=== PATIENT | male | born 1935 | race American Indian/Alaskan Native ===

== ENCOUNTER 2017-03-03 15:05 | Emergency (ER) | payer BC, MEDICARE ==
[2017-03-03 15:05] VITALS: BMI 26.2
[2017-03-03 15:20] VITALS: TEMP 97.4
--- NOTE | 2017-03-03 16:05 | C.PDOC ---
History Of Present Illness 81 y/o male presents to ED sent by Dr. Longo for pacemaker check up. Patient states he went to Dr. Longo's office for routine pacemaker check up and doctor had emergency could not seen him and instructed to come to ED. Patient denies palpitations, lightheadedness, chest pain, palpitations, sob or any other complaints at this time. Time Seen by Provider: 03/03/17 15:26 Chief Complaint (Nursing): Medical Clearance History Per: Patient History/Exam Limitations: no limitations Onset/Duration Of Symptoms: Days Current Symptoms Are (Timing): Still Present Past Medical History Reviewed: Historical Data, Nursing Documentation, Vital Signs Vital Signs: Last Vital Signs Temp 97.4 F L 03/03/17 16:39 Pulse 76 03/03/17 16:39 Resp 16 03/03/17 16:39 BP 144/81 03/03/17 16:39 Pulse Ox 97 03/03/17 16:39 - Medical History PMH: No Chronic Diseases Surgical History: No Surg Hx, Pacemaker - [facility] Procedures OTH & OPEN REPAIR INDIRECT INGUINAL HERNIA W GRFT OR PROSTH (01/16/13) Family History: States: No Known Family Hx - Social History Hx Alcohol Use: No Hx Substance Use: No Review Of Systems Constitutional: Negative for: Fever, Chills Cardiovascular: Negative for: Chest Pain, Palpitations, Light Headedness Gastrointestinal: Negative for: Nausea, Vomiting Skin: Negative for: Rash Physical Exam - Physical Exam Appears: Non-toxic, No Acute Distress Skin: Normal Color, Warm, Dry, No Rash Head: Atraumatic, Normacephalic Eye(s): 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 There is no answer at his office. Disposition - Disposition Referrals: Buffy Longo MD [Medical Doctor] - Disposition: HOME/ ROUTINE Disposition Time: 16:04 Condition: STABLE Forms: [facility] (Kazakh), General Discharge Instructions - Clinical Impression Clinical Impression: Medical assessment - Scribe Statement The provider has reviewed the documentation as recorded by the Jessiibjayashree North All medical record entries made by the Jessiibe were at my direction and personally dictated by me. I have reviewed the chart and agree that the record accurately reflects my personal performance of the history, physical exam, medical decision making, and the department course for this patient. I have also personally directed, reviewed, and agree with the discharge instructions and disposition.
[2017-03-03 16:40] VITALS: BP 144/81; PULSE 76; RESP 16
[2017-03-03 16:47] VITALS: O2SAT 98
--- NOTE | 2017-03-04 12:14 | CARD ---
APPROVED REPORT EKG Measurement Heart [id number] <Conclusion> AV dual-paced rhythm with prolonged AV conduction Abnormal ECG
== END 2017-03-03 19:09 | disposition home or self-care (01) ==
LOC: C.ER 15:05
DX: Z00.00 Encounter for general adult medical examination without abnormal findings (principal)

== ENCOUNTER 2017-11-14 21:59 | Inpatient (IN) | payer MEDICARE ==
[2017-11-14 21:59] VITALS: BMI 26.2
[2017-11-14 22:40] LABS: BASO % 0.9 % (0.0-2.0); EOS % 0.6 % (0.0-4.0); HEMOGLOBIN 12.5 g/dL (12.0-18.0); LYMPH # 0.6 K/uL (1.0-4.3); LYMPH % 12.5 % (20.0-40.0); MEAN CELL VOLUME 90.5 fL (80.0-94.0); MEAN CORPUSCULAR HEMOGLOBIN 28.8 pg (27.0-31.0); MEAN CORPUSCULAR HGB CONC 31.8 g/dL (33.0-37.0); MEAN PLATELET VOLUME 9.8 fL (7.2-11.7); MONO # 0.6 K/uL (0.0-0.8); MONO % 12.5 % (0.0-10.0); NEUT # 3.6 K/uL (1.8-7.0); NEUT % 73.5 % (50.0-75.0); NRBC % 0.1 % (0.0-2.0); RBC 4.34 Mil/uL (4.40-5.90); RED CELL DISTRIBUTION WIDTH 17.6 % (11.5-14.5); WHITE BLOOD COUNT 4.9 K/uL (4.8-10.8)
[2017-11-14 23:04] LABS: ALB/GLOB RATIO 1.3 (1.0-2.1); ALBUMIN 3.6 g/dL (3.5-5.0); CALCIUM 9.1 mg/dl (8.6-10.4)
--- NOTE | 2017-11-14 23:05 | C.PDOC ---
History Of Present Illness 82 year old male presents to the ED c/o chest tightness that has been intermittent for the past 4 days. Patient states he occasionally feels chest pain when taking deep breaths. Patient denies fever, chills, nausea, vomit, diarrhea, dysuria, hematuria, weakness, numbness. Chief Complaint (Nursing): Abdominal Pain History Per: Patient History/Exam Limitations: no limitations Onset/Duration Of Symptoms: Days (4), Intermittent Episodes Current Symptoms Are (Timing): Better Quality: "Pain" Recent travel outside of the [place]: No Additional History Per: Patient Past Medical History Reviewed: Historical Data, Nursing Documentation, Vital Signs Vital Signs: Last Vital Signs Temp 97.8 F 11/14/17 22:06 Pulse 96 H 11/14/17 22:06 Resp 18 11/14/17 22:06 BP 149/96 H 11/14/17 22:06 Pulse Ox 98 11/14/17 22:06 - Medical History PMH: No Chronic Diseases Surgical History: Pacemaker - [facility] Procedures OTH & OPEN REPAIR INDIRECT INGUINAL HERNIA W GRFT OR PROSTH (01/16/13) Family History: States: Unknown Family Hx - Social History Hx Alcohol Use: No Hx Substance Use: No - Immunization History Hx Tetanus Toxoid Vaccination: (unknown) Hx Influenza Vaccination: No Hx Pneumococcal Vaccination: (unknown) Review Of Systems Constitutional: Negative for: Fever, Chills Cardiovascular: Positive for: Chest Pain. Negative for: Palpitations Respiratory: Negative for: Cough, Shortness of Breath Gastrointestinal: Negative for: Nausea, Vomiting, Abdominal Pain Neurological: Negative for: Weakness, Numbness, Headache Physical Exam - Physical Exam Appears: Non-toxic, No Acute Distress Skin: Normal Color, Warm, Dry Head: Atraumatic, Normacephalic Eye(s): bilateral: Normal Inspection Neck: Normal ROM, Supple Chest: Symmetrical Cardiovascular: Rhythm Regular Respiratory: Rales (Bilateral at the bases. R > L), No Rhonchi, No Wheezing Gastrointestinal/Abdominal: Soft, No Tenderness, No Guarding, No Rebound Extremity: Normal ROM, No Tenderness, Pedal Edema (2+ bilateral), Capillary Refill (< 2 seconds) Pulses: Left Dorsalis Pedis: Normal, Right Dorsalis Pedis: Normal Neurological/Psych: Oriented x3, Normal Speech, Normal Cognition Gait: Steady ED Course And Treatment - Laboratory Results Result Diagrams: 11/14/17 22:35 11/14/17 22:35 ECG Rhythm: A Paced ECG Interpretation: Abnormal Interpretation Of ECG: atial pacemaker, no acute ST-T changes. Rate From EC O2 Sat by Pulse Oximetry: 98 (ON RA) Pulse Ox Interpretation: Normal - CT Scan/US Ct chest Other Rad Studies (CT/US): Read By Radiologist, Radiology Report Reviewed CT/US Interpretation: CT SCAN OF THE CHEST WITHOUT IV CONTRAST. CLINICAL INDICATION: Chest pain. TECHNIQUE: Axial and reformatted sagittal and coronal images of the chest obtained without IV contrast administration. FINDINGS: Mild right pleural effusion. Moderate left pleural effusion. Passive atelectatic airspace disease of the lower lobes. 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 Right pleural thickening. Multiloculated right pleural effusion and right pleural fissures. Masslike consolidation/subsegmental atelectatic airspace disease of the right lower lobe measuring 4.2x3.7 cm. Mild central pulmonary venous congestion. Normal unenh anced main pulmonary artery and right and left pulmonary arteries. Normal bilateral peripheral pulmonary arteries. Normal thoracic aorta and visualized great vessels. There is no demonstrated aortic aneurysm. Moderately enlarged heart and normal pericardium. AICD is in good position. Normal mediastinum. Normal hilar regions. Normal visualized trachea and bronchi. Normal chest wall structures. Moderate spondylosis. Dilated suprahepatic IVC function of the right cardiac cavities. IMPRESSION: Congestive heart failure. Bilateral pleural effusions. Masslike consolidation in the right lower lobe. This can be secondary to passive atelectasis, subsegmental atelectatic airspace disease, focal pneumonia and/or neoplastic pathology. Clinical evaluation and serial followup exams are suggested to complete resolution. . Electronically signed on Nov 15, 2017 4:14:03 AM EDT by: Sammy Contreras M.D., Certified by PRASANNA, MSK, Neuroradiology Medical Decision Making Medical Decision Making: Plan: * EKG * Labs * CXR * UA on reexamination patient states he no longer has any chest pain, and is asymptomatic now Disposition Discussed With : Joe Hernandez Doctor Will See Patient In The: Hospital Counseled Patient/Family Regarding: Diagnosis - Disposition Disposition: HOSPITALIZED Disposition Time: 05:14 Condition: STABLE Forms: [facility] ([place]riac) - POA Present On Arrival: None - Clinical Impression Clinical Impression: Chest pain, CHF (congestive heart failure), Pleural effusion - Scribe Statement The provider has reviewed the documentation as recorded by the Scribe Young Breen All medical record entries made by the Scribe were at my direction and personally dictated by me. I have reviewed the chart and agree that the record accurately reflects my personal performance of the history, physical exam, medical decision making, and the department course for this patient. I have also personally directed, reviewed, and agree with the discharge instructions and disposition.
[2017-11-14 23:16] LABS: TROPONIN I 0.018 ng/mL (0.00-0.120)
[2017-11-15 00:02] LABS: URINE BILIRUBIN NEGATIVE (NEGATIVE); URINE BLOOD NEGATIVE (NEGATIVE); URINE CLARITY Clear (Clear); URINE COLOR Yellow (YELLOW); URINE GLUCOSE (UA) NORMAL (Normal); URINE LEUKOCYTE ESTERASE NEG Leu/uL (Negative); URINE PROTEIN NEGATIVE (NEGATIVE); URINE UROBILINOGEN NORMAL mg/dL (0.2-1.0)
[2017-11-15] MEDS ORDERED: Azithromycin 500mg/250ML NS 500 MG/250 ML BAG IV STA (04:28)
[2017-11-15] MEDS ORDERED: cefTRIAXone IV 1 gm in Dextros 50 ML IVPB ONE (04:29)
[2017-11-15] MEDS ORDERED: Azithromycin 500mg/250ML NS 500 MG/250 ML BAG IVPB ONE (05:31)
--- NOTE | 2017-11-15 07:57 | CP.PCM.HP ---
<Azra Weathers - Last Filed: 11/15/17 16:55> History of Present Illness - History of Present Illness History of Present Illness: Patient seen and examined in [facility] at approximately 8:25AM. Patient is a FULL CODE status at this time. Patient's emergency contact is Monica Aburto. They can be reached at [phone]. Patient's son lives in [place]. He can be reached at [phone]. CC: "Compression of the chest" HPI: 82 year old male with past medical history significant for HTN, heart murmur, "lung contusion" and chronic back pain presents with complaints of shortness of breath and chest compression which began two days ago. Patient states that his symptoms initially began Wednesday afternoon. He cannot recall any inciting events. Patient states that his symptoms worsened such that he came in for evaluation. Patient states that he typically feels short of breath after walking approx 0.25 miles. He admits to using 2 pillows to sleep at night for the past year. Patient admits to a 30 lb unintentional weight loss within the past year. Patient denies subjective fevers or chills, headaches, nausea, vomiting or paresthesias at this time. PMHx- as stated above PSHx- eye surgery at age 5 and 23, Pacemaker placement, left inguinal hernia repair. Fam Hx- Mother with DM, Dad with hypotension Meds- Aliskiren 300mg/12.5mg daily Social- denies alcohol, tobacco or illicit drug use. Retired. Former rehab teacher/counselor Allergies- PCN causes rash and swelling; Vegetables from the [employer] family PMD- formerly Dr. Montoya. Currently does not have a PMD. Follows with Cardio logist Dr. Longo Present on Admission - Present on Admission Any Indicators Present on Admission: No Review of Systems - EENT Eyes: As Per HPI Nose/Mouth/Throat: As Per HPI - Cardiovascular Cardiovascular: Chest Pain, Dyspnea on Exertion - Respiratory Respiratory: Cough, Dyspnea on Exertion - Gastrointestinal Gastrointestinal: absent: Abdominal Pain, Nausea, Vomiting - Genitourinary Genitourinary: Urinary Incontinence. absent: Dysuria, Flank Pain - Musculoskeletal Musculoskeletal: absent: Myalgias, Neck Pain - Integumentary Integumentary: absent: Bleeding Lesions, Change in Hair, Rash, Skin Pain - Neurological Neurological: absent: Weakness - Psychiatric Psychiatric: absent: Anhedonia, Anxiety - Hematologic/Lymphatic Hematologic: absent: Easy Bleeding, Easy Bruising Past Patient History - Past Social History Smoking Status: Never Smoked Alcohol: None Home Situation {Lives}: With Family - CARDIAC Hx Pacemaker: Yes - PSYCHIATRIC Hx Substance Use: No - SURGICAL HISTORY Other/Comment: pacemaker insertion, Chest surgery from an accident - ANESTHESIA Hx Anesthesia: Yes Hx Anesthesia Reactions: No Meds Allergies/Adverse Reactions: Allergies Allergy/AdvReac Type Severity Reaction Status Date / Time parra Allergy RASH Verified 11/15/17 11:16 Penicillins Allergy RASH Verified 11/15/17 11:16 pepper (genus Capsicum) Allergy RASH Verified 11/15/17 11:16 potato Allergy RASH Verified 11/15/17 11:16 squash Allergy RASH Verified 11/15/17 11:16 tomato Allergy RASH Verified 11/15/17 11:16 Physical Exam - Constitutional Appears: Non-toxic, No Acute Distress - Head Exam Head Exam: ATRAUMATIC, NORMAL INSPECTION - Eye Exam Additional comments: eyelids are closed at this time - ENT Exam ENT Exam: Mucous Membranes Moist - Neck Exam Neck exam: Positive for: Full Rom - Cardiovascular Exam Cardiovascular Exam: REGULAR RHYTHM, +S1, +S2 - GI/Abdominal Exam GI & Abdominal Exam: Normal Bowel Sounds, Soft. absent: Distended, Firm, Tenderness - Extremities Exam Extremities exam: Positive for: full ROM, pedal edema, pedal pulses present. Negative for: calf tenderness - Back Exam Back exam: FULL ROM - Neurological Exam Neurological exam: Alert - Psychiatric Exam Psychiatric exam: Normal Affect, Normal Mood - Skin Skin Exam: Dry, Intact, Normal Color Results - Vital Signs Recent Vital Signs: Last Vital Signs Temp 98.1 F 11/15/17 07:45 Pulse 89 11/15/17 07:45 Resp 20 11/15/17 07:45 BP 118/88 11/15/17 07:45 Pulse Ox 98 11/15/17 07:45 - Labs Result Diagrams: 11/14/17 22:35 11/14/17 22:35 Labs: Laboratory Results - last 24 hr 11/14/17 11/14/17 11/14/17 22:35 22:35 23:10 WBC 4.9 RBC 4.34 L Hgb 12.5 Hct 39.3 MCV 90.5 D MCH 28.8 MCHC 31.8 L RDW 17.6 H Plt Count 150 MPV 9.8 Neut % (Auto) 73.5 Lymph % (Auto) 12.5 L Ocean % (Auto) 12.5 H Eos % (Auto) 0.6 Baso % (Auto) 0.9 Neut # (Auto) 3.6 Lymph # (Auto) 0.6 L [place] # (Auto) 0.6 Eos # (Auto) 0.0 Baso # (Auto) 0.0 D-Dimer, Quantitative 2720 H Sodium 141 Potassium 4.5 Chloride 106 Carbon Dioxide 20 L Anion Gap 19 BUN 23 H Creatinine 1.6 H Est GFR ( Amer) 50 Est GFR (Non-Af Amer) 41 Random Glucose 135 H Calcium 9.1 Total Bilirubin 0.5 AST 73 H ALT 70 Alkaline Phosphatase 138 H Troponin I 0.0180 Total Protein 6.4 Albumin 3.6 Globulin 2.8 Albumin/Globulin Ratio 1.3 Urine Color Urine Clarity Urine pH Ur Specific [place] Urine Protein Urine Glucose (UA) Urine Ketones Urine Blood Urine Nitrate Urine Bilirubin Urine Urobilinogen Ur Leukocyte Esterase Urine RBC (Auto) 11/14/17 23:53 WBC RBC Hgb Hct MCV MCH MCHC RDW Plt Count MPV Neut % (Auto) Lymph % (Auto) Ocean % (Auto) Eos % (Auto) Baso % (Auto) Neut # (Auto) Lymph # (Auto) Ocean # (Auto) Eos # (Auto) Baso # (Auto) D-Dimer, Quantitative Sodium Potassium Chloride Carbon Dioxide Anion Gap BUN Creatinine Est GFR ( Amer) Est GFR (Non-Af Amer) Random Glucose Calcium Total Bilirubin AST ALT Alkaline Phosphatase Troponin I Total Protein Albumin Globulin Albumin/Globulin Ratio Urine Color Yellow Urine Clarity Clear Urine pH 5.0 Ur Specific [place] 1.006 Urine Protein Negative Urine Glucose (UA) Normal Urine Ketones Negative Urine Blood Negative Urine Nitrate Negative Urine Bilirubin Negative Urine Urobilinogen Normal Ur Leukocyte Esterase Neg Urine RBC (Auto) < 1 Assessment & Plan (1) Chest pain Assessment and Plan: ROSLYN 1-2 negtive EKG with signs of PVCs Follow up ROSLYN 3 with EKG Consider Cardiology Consult in light of history of pacemaker. (Patient did not initially disclose this information.) Status: Acute (2) Dyspnea on exertion Assessment and Plan: D-Dimer elevated. F/U Chest CT to rule out PE. BNP elevated F/U Echo CXR and Chest CT confirm bilateral pleural effusions- Noted that there may be some loculation as well Mass noted on CT- Unclear whether it's loculated fluid versus unknown mass. Consult to Cardiothoracic surgery- F/U recommendations In the meantime, follow up CT imaging of abdomen-pelvis and Head CT to rule out any other mass . Pulmonology (Dr. Harley on the case)- F/U recommendations Status: Acute (3) HTN (hypertension) Assessment and Plan: On Aliskerin therapy as home medication. There are contraindications to using this medcication with ACEinhibs/ARBs Patient with lower extremity edema and this will hold off on CCBs at this time. Monitor BP Status: Chronic (4) Prophylactic measure Assessment and Plan: Heparin SC Q12 GI Prophylaxis not currently indicated Status: Acute <Gonzalez Deras H - Last Filed: 11/15/17 18:21> Results - Vital Signs Recent Vital Signs: Last Vital Signs Temp 97.4 F L 11/15/17 16:09 Pulse 89 11/15/17 16:09 Resp 20 11/15/17 16:09 BP 138/100 H 11/15/17 16:09 Pulse Ox 96 11/15/17 16:09 - Labs Result Diagrams: 11/14/17 22:35 11/14/17 22:35 Labs: Laboratory Results - last 24 hr 11/14/17 11/14/17 11/14/17 22:35 22:35 23:10 WBC 4.9 RBC 4.34 L Hgb 12.5 Hct 39.3 MCV 90.5 D MCH 28.8 MCHC 31.8 L RDW 17.6 H Plt Count 150 MPV 9.8 Neut % (Auto) 73.5 Lymph % (Auto) 12.5 L Ocean % (Auto) 12.5 H Eos % (Auto) 0.6 Baso % (Auto) 0.9 Neut # (Auto) 3.6 Lymph # (Auto) 0.6 L [place] # (Auto) 0.6 Eos # (Auto) 0.0 Baso # (Auto) 0.0 D-Dimer, Quantitative 2720 H Sodium 141 Potassium 4.5 Chloride 106 Carbon Dioxide 20 L Anion Gap 19 BUN 23 H Creatinine 1.6 H Est GFR ( Amer) 50 Est GFR (Non-Af Amer) 41 Random Glucose 135 H Calcium 9.1 Total Bilirubin 0.5 AST 73 H ALT 70 Alkaline Phosphatase 138 H Total Creatine Kinase CK-MB (Mass) Troponin I 0.0180 NT-Pro-B Natriuret Pep Total Protein 6.4 Albumin 3.6 Globulin 2.8 Albumin/Globulin Ratio 1.3 Alpha Fetoprotein Carcinoembryonic Ag CA 19-9 Antigen Urine Color Urine Clarity Urine pH Ur Specific [place] Urine Protein Urine Glucose (UA) Urine Ketones Urine Blood Urine Nitrate Urine Bilirubin Urine Urobilinogen Ur Leukocyte Esterase Urine RBC (Auto) 11/14/17 11/15/17 11/15/17 23:53 11:44 11:44 WBC RBC Hgb Hct MCV MCH MCHC RDW Plt Count MPV Neut % (Auto) Lymph % (Auto) Ocean % (Auto) Eos % (Auto) Baso % (Auto) Neut # (Auto) Lymph # (Auto) Ocean # (Auto) Eos # (Auto) Baso # (Auto) D-Dimer, Quantitative Sodium Potassium Chloride Carbon Dioxide Anion Gap BUN Creatinine Est GFR ( Amer) Est GFR (Non-Af Amer) Random Glucose Calcium Total Bilirubin AST ALT Alkaline Phosphatase Total Creatine Kinase 56 CK-MB (Mass) 1.41 Troponin I 0.0240 NT-Pro-B Natriuret Pep 51137 H Total Protein Albumin Globulin Albumin/Globulin Ratio Alpha Fetoprotein Carcinoembryonic Ag 3.6 H CA 19-9 Antigen < 1.4 Urine Color Yellow Urine Clarity Clear Urine pH 5.0 Ur Specific [place] 1.006 Urine Protein Negative Urine Glucose (UA) Normal Urine Ketones Negative Urine Blood Negative Urine Nitrate Negative Urine Bilirubin Negative Urine Urobilinogen Normal Ur Leukocyte Esterase Neg Urine RBC (Auto) < 1 11/15/17 11/15/17 11:44 17:24 WBC RBC Hgb Hct MCV MCH MCHC RDW Plt Count MPV Neut % (Auto) Lymph % (Auto) Ocean % (Auto) Eos % (Auto) Baso % (Auto) Neut # (Auto) Lymph # (Auto) Ocean # (Auto) Eos # (Auto) Baso # (Auto) D-Dimer, Quantitative Sodium Potassium Chloride Carbon Dioxide Anion Gap BUN Creatinine Est GFR ( Amer) Est GFR (Non-Af Amer) Random Glucose Calcium Total Bilirubin AST ALT Alkaline Phosphatase Total Creatine Kinase 48 L CK-MB (Mass) 1.09 Troponin I 0.0240 NT-Pro-B Natriuret Pep Total Protein Albumin Globulin Albumin/Globulin Ratio Alpha Fetoprotein 3.9 Carcinoembryonic Ag CA 19-9 Antigen Urine Color Urine Clarity Urine pH Ur Specific [place] Urine Protein Urine Glucose (UA) Urine Ketones Urine Blood Urine Nitrate Urine Bilirubin Urine Urobilinogen Ur Leukocyte Esterase Urine RBC (Auto) Attending/Attestation - Attestation I have personally seen and examined this patient.: Yes I have fully participated in the care of the patient.: Yes I have reviewed all pertinent clinical information: Yes Notes (Text): 11/15/17 18:21 Medical attending: Patient was seen and examined by me, reviewed the above note by the medical doctor md/medical director the above. I saw the patient together with the medical doctor md/medical director. As noted above the patient has had a CAT scan which shows very concerning bilateral pleural effusions as well as what appears to be a area of loculated possible fluid or a mass. He tells us that he's had at least a 30 pound weight loss in the recent past I did explain to the patient her suspicion for malignancy was unfortunately higher from what he tells us. The meantime were to check additional CT imaging of the abdomen and pelvis as well as the CT scan of the head to assess for any other potential areas of what could be a malignancy. The patient will need a pulmonology evaluation as well as a surgery evaluation for the time being. We'll check additional cardiac enzymes, repeat EKGs and also BNP and 2-D echo. We may need a cardiology evaluation as well Thank you very much, Gonzalez Deras
--- NOTE | 2017-11-15 09:30 | RAD ---
Date of service: 11/14/2017 PROCEDURE: CHEST RADIOGRAPH, 1 VIEW HISTORY: chest pain COMPARISON: 01/09/2013. FINDINGS: LUNGS: The lungs are well inflated. There are lobular opacities in the right lower lobe. PLEURA: No pneumothorax. Bilateral pleural effusions. CARDIOVASCULAR: Mild cardiomegaly. There is a left-sided dual lead transvenous permanent pacing device. OSSEOUS STRUCTURES: No significant abnormalities. VISUALIZED UPPER ABDOMEN: Normal. OTHER FINDINGS: None. IMPRESSION: Lobular opacities in the right lower lobe which may represent metastatic nodules, mass or loculated fluid. Correlation with CT scan is advised.
[2017-11-15] MEDS ORDERED: Iohexol 240 (50 ml) PO ONE (11:45)
--- NOTE | 2017-11-15 12:10 | CP.PCM.CON ---
History of Present Illness - History of Present Illness History of Present Illness: Cardiothoracic surgery consult for Dr. Melissa. Consulted for: right lower lung mass vs fluid collection Patient is an 82M with PMHx of heart murmur, HTN, and pacemaker placement with PSH including VATS of the right chest for prior lung contusion and collapsed lung 15 years ago. He presented with SOB and chest pressure. Pt reports the chest pressure and SOB started 3 weeks ago. 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 He also complains of pain over his chest over to the L side and R shoulder soreness. Patient reports dry cough (past 2 days), unintentional weight loss of 40 pounds in past year. Pt denies fevers/chills and nausea/vomiting. Patient was admitted at this facility 9 months ago for weakness and had a chest Xray that did not show any fluid collection at that time. PMHx: spinal stenosis, disc displacement, R leg compound fracture, R lung contusion and collapse s/p fall, heart murmur, hypertension SxHx: pacemaker placement (July 2017), eye operations (age 5, 23), prostate operation, L inguinal hernia repair FamHx: brother at 52 from lung cancer, mother had DM, father had hypotension, SocHx Denies smoking, alcohol, and drug use. Retired rehab teacher/counselor. Allergies: penicillin (rash) Meds: Furosemide, Heparin, Azithromycin, and Ceftriaxone. Review of Systems - Review of Systems All systems: reviewed and no additional remarkable complaints except (as per HPI) Past Patient History - Past Medical History & Family History Past Medical History?: Yes Pertinent Family History: brothers of lung cancer--all cigarette smokers - Past Social History Smoking Status: Never Smoked Alcohol: None Drugs: Denies - CARDIAC Hx Pacemaker: Yes - HEENT Hx Blind: Yes - MUSCULOSKELETAL/RHEUMATOLOGICAL Hx Falls: No - GENITOURINARY/GYNECOLOGICAL Hx Incontinence: Yes - PSYCHIATRIC Hx Substance Use: No - SURGICAL HISTORY Other/Comment: pacemaker insertion, VATS right chest for collapsed lung s/p fall - ANESTHESIA Hx Anesthesia: Yes Hx Anesthesia Reactions: No Meds Allergies/Adverse Reactions: Allergies Allergy/AdvReac Type Severity Reaction Status Date / Time parra Allergy RASH Verified 11/15/17 11:16 Penicillins Allergy RASH Verified 11/15/17 11:16 pepper (genus Capsicum) Allergy RASH Verified 11/15/17 11:16 potato Allergy RASH Verified 11/15/17 11:16 squash Allergy RASH Verified 11/15/17 11:16 tomato Allergy RASH Verified 11/15/17 11:16 - Medications Medications: Current Medications Furosemide (Lasix) 20 mg IVP DAILY [facility] Last Admin: 11/15/17 09:46 Dose: 20 mg Heparin Sodium (Porcine) (Heparin) 5,000 units SC Q12 [facility] Last Admin: 11/15/17 09:46 Dose: 5,000 units Influenza Virus Vaccine (Fluzone Quad [id number]) 60 mcg IM .ONCE ONE Stop: 11/16/17 14:01 Pneumococcal Polyvalent Vaccine (Pneumovax 23 Vaccine) 0.5 ml IM .ONCE ONE Stop: 11/16/17 10:01 Physical Exam - Constitutional Appears: Non-toxic, No Acute Distress - Head Exam Head Exam: ATRAUMATIC, NORMOCEPHALIC - Eye Exam Eye Exam: EOMI Additional comments: milky white pupils - ENT Exam ENT Exam: Mucous Membranes Moist, Normal Oropharynx - Respiratory Exam Respiratory Exam: Rales (BL lower lungs R>L), NORMAL BREATHING PATTERN. absent: Accessory Muscle Use, Respiratory Distress - Cardiovascular Exam Cardiovascular Exam: RRR - GI/Abdominal Exam GI & Abdominal Exam: Soft. absent: Distended, Tenderness - Extremities Exam Extremities exam: Positive for: pedal pulses present. Negative for: calf tenderness, pedal edema - Neurological Exam Neurological exam: Alert, Oriented x3 - Psychiatric Exam Psychiatric exam: Normal Affect, Normal Mood - Skin Skin Exam: Dry, Intact, Normal Color, Warm Results - Vital Signs Recent Vital Signs: Last Vital Signs Temp 98.1 F 11/15/17 07:45 Pulse 91 H 11/15/17 07:57 Resp 20 11/15/17 07:45 BP 142/98 H 11/15/17 09:46 Pulse Ox 98 11/15/17 07:45 - Labs Result Diagrams: 11/14/17 22:35 11/14/17 22:35 Labs: Laboratory Results - last 24 hr 11/14/17 11/14/17 11/14/17 22:35 22:35 23:10 WBC 4.9 RBC 4.34 L Hgb 12.5 Hct 39.3 MCV 90.5 D MCH 28.8 MCHC 31.8 L RDW 17.6 H Plt Count 150 MPV 9.8 Neut % (Auto) 73.5 Lymph % (Auto) 12.5 L [place] % (Auto) 12.5 H Eos % (Auto) 0.6 Baso % (Auto) 0.9 Neut # (Auto) 3.6 Lymph # (Auto) 0.6 L [place] # (Auto) 0.6 Eos # (Auto) 0.0 Baso # (Auto) 0.0 D-Dimer, Quantitative 2720 H Sodium 141 Potassium 4.5 Chloride 106 Carbon Dioxide 20 L Anion Gap 19 BUN 23 H Creatinine 1.6 H Est GFR ( Amer) 50 Est GFR (Non-Af Amer) 41 Random Glucose 135 H Calcium 9.1 Total Bilirubin 0.5 AST 73 H ALT 70 Alkaline Phosphatase 138 H Troponin I 0.0180 Total Protein 6.4 Albumin 3.6 Globulin 2.8 Albumin/Globulin Ratio 1.3 Urine Color Urine Clarity Urine pH Ur Specific [place] Urine Protein Urine Glucose (UA) Urine Ketones Urine Blood Urine Nitrate Urine Bilirubin Urine Urobilinogen Ur Leukocyte Esterase Urine RBC (Auto) 11/14/17 23:53 WBC RBC Hgb Hct MCV MCH MCHC RDW Plt Count MPV Neut % (Auto) Lymph % (Auto) [place] % (Auto) Eos % (Auto) Baso % (Auto) Neut # (Auto) Lymph # (Auto) [place] # (Auto) Eos # (Auto) Baso # (Auto) D-Dimer, Quantitative Sodium Potassium Chloride Carbon Dioxide Anion Gap BUN Creatinine Est GFR ( Amer) Est GFR (Non-Af Amer) Random Glucose Calcium Total Bilirubin AST ALT Alkaline Phosphatase Troponin I Total Protein Albumin Globulin Albumin/Globulin Ratio Urine Color Yellow Urine Clarity Clear Urine pH 5.0 Ur Specific [place] 1.006 Urine Protein Negative Urine Glucose (UA) Normal Urine Ketones Negative Urine Blood Negative Urine Nitrate Negative Urine Bilirubin Negative Urine Urobilinogen Normal Ur Leukocyte Esterase Neg Urine RBC (Auto) < 1 - Imaging and Cardiology CT scan - chest Status: Image reviewed by me, Report reviewed by me Assessment & Plan - Assessment and Plan (Free Text) Assessment: 82M with PMH of right sided VATS for collapsed lung with current BL pleural effusions, and consolidation in the right lung concerning for mass vs subsegmental atelectasis Plan: Recommend cardiac and pulmonary consults for evaluation and optimization Recommend IR for possible fluid drainage or biopsy of concerning area management per primary Further cardiothoracic surgical recommendations pending further workup of the CT findings Discussed with Dr. Melissa, further recommendations per him Annita Penny, PGY2
[2017-11-15 12:12] LABS: CK-MB 1.41 ng/mL (0.0-3.38)
[2017-11-15 12:13] LABS: B-TYPE NATRIURETIC PEPTIDE 21300 pg/mL (0-900)
[2017-11-15 12:17] LABS: TROPONIN I 0.024 ng/mL (0.00-0.120)
--- NOTE | 2017-11-15 14:46 | CT ---
Date of service: 11/15/2017 PROCEDURE: CT HEAD WITHOUT CONTRAST. HISTORY: rule out mass COMPARISON: None available. TECHNIQUE: Axial computed tomography images were obtained through the head/brain without intravenous contrast. Radiation dose: Total exam DLP = 1087.42 mGy-cm. This CT exam was performed using one or more of the following dose reduction techniques: Automated exposure control, adjustment of the mA and/or kV according to patient size, and/or use of iterative reconstruction technique. FINDINGS: HEMORRHAGE: No intracranial hemorrhage. 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 There are moderate chronic microangiopathic changes. There is no mass, mass effect or abnormal extra-axial fluid collection. VENTRICLES: There is mild age-related global parenchymal volume loss and proportionate enlargement of the ventricles and cortical sulci. CALVARIUM: The skull base and calvarium are normal. PARANASAL SINUSES: Unremarkable as visualized. No significant inflammatory changes. MASTOID AIR CELLS: Unremarkable as visualized. No inflammatory changes. OTHER FINDINGS: Bilateral phthisis bulbi. IMPRESSION: No acute intracranial abnormality. Moderate chronic microangiopathic changes and mild age-related global parenchymal volume loss. Old lacunar infarctions as described above.
--- NOTE | 2017-11-15 15:12 | CP.PCM.CON ---
History of Present Illness - History of Present Illness History of Present Illness: reason for consultation: shortness of breath 82-year-old male with past medical history of hypertension, status post permanent pacemaker, glaucoma, history of collapsed lung who presented to emergency room complaining of shortness of breath and chest pressure. denies fever chills. Complaining of weight loss and cough PMHx: spinal stenosis, disc displacement, R leg compound fracture, R lung contusion and collapse s/p fall, heart murmur, hypertension, glaucoma, cataracts SurgHx: pacemaker placement in July 2017, eye operations at age 5 and 23, prostate operation, L inguinal repair Fam Hx: brother of lung cancer at age 52, mother DM, father hypotension Social Hx: denies smoking, alcohol and illicit drug use Allergies: Penicillin, patient gets a rash Meds: Furosemide, Heparin, Azithromycin, Ceftriaxone . Review of Systems - Review of Systems All systems: reviewed and no additional remarkable complaints except (shortness of breath) Past Patient History - Past Medical History & Family History Past Medical History?: Yes - Past Social History Smoking Status: Never Smoked Alcohol: None Home Situation {Lives}: With Family - CARDIAC Hx Pacemaker: Yes - HEENT Hx Blind: Yes - MUSCULOSKELETAL/RHEUMATOLOGICAL Hx Falls: No - GENITOURINARY/GYNECOLOGICAL Hx Incontinence: Yes - PSYCHIATRIC Hx Substance Use: No - SURGICAL HISTORY Other/Comment: pacemaker insertion, Chest surgery from an accident - ANESTHESIA Hx Anesthesia: Yes Hx Anesthesia Reactions: No Meds Allergies/Adverse Reactions: Allergies Allergy/AdvReac Type Severity Reaction Status Date / Time parra Allergy RASH Verified 11/15/17 11:16 Penicillins Allergy RASH Verified 11/15/17 11:16 pepper (genus Capsicum) Allergy RASH Verified 11/15/17 11:16 potato Allergy RASH Verified 11/15/17 11:16 squash Allergy RASH Verified 11/15/17 11:16 tomato Allergy RASH Verified 11/15/17 11:16 - Medications Medications: Current Medications Furosemide (Lasix) 20 mg IVP DAILY [facility] Last Admin: 11/15/17 09:46 Dose: 20 mg Heparin Sodium (Porcine) (Heparin) 5,000 units SC Q12 [facility] Last Admin: 11/15/17 09:46 Dose: 5,000 units Influenza Virus Vaccine (Fluzone Quad [id number]) 60 mcg IM .ONCE ONE Stop: 10/02/18 14:01 Pneumococcal Polyvalent Vaccine (Pneumovax 23 Vaccine) 0.5 ml IM .ONCE ONE Stop: 11/16/17 10:01 Physical Exam - Head Exam Head Exam: ATRAUMATIC, NORMOCEPHALIC - Eye Exam Eye Exam: Normal appearance - ENT Exam ENT Exam: Mucous Membranes Moist - Neck Exam Neck exam: Positive for: Normal Inspection - Respiratory Exam Respiratory Exam: Decreased Breath Sounds - Cardiovascular Exam Cardiovascular Exam: REGULAR RHYTHM Results - Vital Signs Recent Vital Signs: Last Vital Signs Temp 98.1 F 11/15/17 07:45 Pulse 94 H 11/15/17 12:00 Resp 20 11/15/17 07:45 BP 142/98 H 11/15/17 09:46 Pulse Ox 98 11/15/17 07:45 - Labs Result Diagrams: 11/14/17 22:35 11/14/17 22:35 Labs: Laboratory Results - last 24 hr 11/14/17 11/14/17 11/14/17 22:35 22:35 23:10 WBC 4.9 RBC 4.34 L Hgb 12.5 Hct 39.3 MCV 90.5 D MCH 28.8 MCHC 31.8 L RDW 17.6 H Plt Count 150 MPV 9.8 Neut % (Auto) 73.5 Lymph % (Auto) 12.5 L [place] % (Auto) 12.5 H Eos % (Auto) 0.6 Baso % (Auto) 0.9 Neut # (Auto) 3.6 Lymph # (Auto) 0.6 L [place] # (Auto) 0.6 Eos # (Auto) 0.0 Baso # (Auto) 0.0 D-Dimer, Quantitative 2720 H Sodium 141 Potassium 4.5 Chloride 106 Carbon Dioxide 20 L Anion Gap 19 BUN 23 H Creatinine 1.6 H Est GFR ( Amer) 50 Est GFR (Non-Af Amer) 41 Random Glucose 135 H Calcium 9.1 Total Bilirubin 0.5 AST 73 H ALT 70 Alkaline Phosphatase 138 H Total Creatine Kinase CK-MB (Mass) Troponin I 0.0180 NT-Pro-B Natriuret Pep Total Protein 6.4 Albumin 3.6 Globulin 2.8 Albumin/Globulin Ratio 1.3 Alpha Fetoprotein Carcinoembryonic Ag CA 19-9 Antigen Urine Color Urine Clarity Urine pH Ur Specific [place] Urine Protein Urine Glucose (UA) Urine Ketones Urine Blood Urine Nitrate Urine Bilirubin Urine Urobilinogen Ur Leukocyte Esterase Urine RBC (Auto) 11/14/17 11/15/17 11/15/17 23:53 11:44 11:44 WBC RBC Hgb Hct MCV MCH MCHC RDW Plt Count MPV Neut % (Auto) Lymph % (Auto) [place] % (Auto) Eos % (Auto) Baso % (Auto) Neut # (Auto) Lymph # (Auto) [place] # (Auto) Eos # (Auto) Baso # (Auto) D-Dimer, Quantitative Sodium Potassium Chloride Carbon Dioxide Anion Gap BUN Creatinine Est GFR ( Amer) Est GFR (Non-Af Amer) Random Glucose Calcium Total Bilirubin AST ALT Alkaline Phosphatase Total Creatine Kinase 56 CK-MB (Mass) 1.41 Troponin I 0.0240 NT-Pro-B Natriuret Pep 11827 H Total Protein Albumin Globulin Albumin/Globulin Ratio Alpha Fetoprotein Carcinoembryonic Ag 3.6 H CA 19-9 Antigen < 1.4 Urine Color Yellow Urine Clarity Clear Urine pH 5.0 Ur Specific [place] 1.006 Urine Protein Negative Urine Glucose (UA) Normal Urine Ketones Negative Urine Blood Negative Urine Nitrate Negative Urine Bilirubin Negative Urine Urobilinogen Normal Ur Leukocyte Esterase Neg Urine RBC (Auto) < 1 11/15/17 11:44 WBC RBC Hgb Hct MCV MCH MCHC RDW Plt Count MPV Neut % (Auto) Lymph % (Auto) [place] % (Auto) Eos % (Auto) Baso % (Auto) Neut # (Auto) Lymph # (Auto) [place] # (Auto) Eos # (Auto) Baso # (Auto) D-Dimer, Quantitative Sodium Potassium Chloride Carbon Dioxide Anion Gap BUN Creatinine Est GFR ( Amer) Est GFR (Non-Af Amer) Random Glucose Calcium Total Bilirubin AST ALT Alkaline Phosphatase Total Creatine Kinase CK-MB (Mass) Troponin I NT-Pro-B Natriuret Pep Total Protein Albumin Globulin Albumin/Globulin Ratio Alpha Fetoprotein 3.9 Carcinoembryonic Ag CA 19-9 Antigen Urine Color Urine Clarity Urine pH Ur Specific [place] Urine Protein Urine Glucose (UA) Urine Ketones Urine Blood Urine Nitrate Urine Bilirubin Urine Urobilinogen Ur Leukocyte Esterase Urine RBC (Auto) Assessment & Plan (1) Dyspnea on exertion Status: Acute Comment: CAT scan of the chest reviewed. Loculated effusion/mass lesion. IR consult. Official CAT scan report (2) Pleural effusion Status: Acute
--- NOTE | 2017-11-15 15:55 | CT ---
Date of service: 11/15/2017 PROCEDURE: CT Chest without contrast HISTORY: chest pain/ left lung field density COMPARISON: None available. TECHNIQUE: Contiguous axial images were obtained through the chest without intravenous contrast enhancement. Sagittal and coronal reconstructions were performed. Radiation dose (DLP): 260.06 mGy-cm. This CT exam was performed using one or more of the following dose reduction techniques: Automated exposure control, adjustment of the mA and/or kV according to patient size, and/or use of iterative reconstruction technique. FINDINGS: LUNGS: There is a large left-sided effusion that may in part be loculated which is associated with some atelectasis in the left lung base. Suspect free-flowing pleural fluid extending superiorly into the left upper lung field and lung apex. Additionally, similar suspected smaller loculated pleural collections felt to be present in the right lung base as well extending superiorly into the right upper lobe and lung apex as well.. There also appears to be mild ground-glass opacities suggesting mild pulmonary venous congestion. MEDIASTINUM: Heart is enlarged. No significant pericardial effusion. In situ bipolar pacemaker/defibrillator. Ascending thoracic aorta is dilated measuring approximately 4.0 cm and descending thoracic aorta measures approximately 2.7 cm. Pulmonary trunk measures approximately 3.7 cm. Central airways midline and patent. No large central endoluminal lesions. Few small nonspecific mediastinal lymph nodes are present. Evaluation for hilar adenopathy is limited due to the lack of circulating intravenous contrast material. PLEURA: No evidence of pneumothorax BONES: Minor multilevel degenerative spondylosis of the thoracic spine. No acute compression fractures no retropulsed fragments UPPER ABDOMEN: Grossly unremarkable. OTHER FINDINGS: None. IMPRESSION: There is a relatively large left-sided effusion part of which is felt to be loculated. Suspect small loculated pleural collections right lung base extending superiorly into the right upper lobe and lung apex.. Mild bibasilar atelectasis felt be present. Cardiomegaly with mildly the the dilated ascending thoracic aorta.
--- NOTE | 2017-11-15 16:22 | CT ---
Date of service: 2017-11-15 13:57:12 PROCEDURE: CT Chest, Abdomen and Pelvis with intravenous contrast HISTORY: rule out PE, prior study was not under PE protocol COMPARISON: None available. TECHNIQUE: IV dose administered: 100 cc of Omni 350 Radiation dose: Total exam DLP = 726 mGy-cm. This CT exam was performed using one or more of the following dose reduction techniques: Automated exposure control, adjustment of the mA and/or kV according to patient size, and/or use of iterative reconstruction technique. FINDINGS: CT CHEST WITH CONTRAST: LUNGS: See below MEDIASTINUM: The study was not ordered as a pulmonary embolus study. However there is adequate opacification of the proximal vessels to exclude emboli. Small emboli in the distal branches cannot be excluded. The aorta is mildly dilated and tortuous with no evidence of dissection. LYMPH NODES: Unremarkable. PLEURA: Bilateral pleural effusions are seen with multiple round loculations. These all measure fluid density. BONES: Unremarkable. OTHER FINDINGS: None. CT ABDOMEN AND PELVIS: LIVER: Unremarkable. No gross lesion or ductal dilatation. GALLBLADDER AND BILE DUCTS: Unremarkable. PANCREAS: Mildly dilated pancreatic duct SPLEEN: Unremarkable. ADRENALS: Unremarkable. No mass. KIDNEYS AND URETERS: Unremarkable. No hydronephrosis. No solid mass. VASCULATURE: Unremarkable. No aortic aneurysm. BOWEL: Unremarkable. No obstruction. No gross mural thickening. There is increased density in the fat planes surrounding the rectum. This could be a chronic finding. Clinical correlation is suggested. APPENDIX: Normal appendix. PERITONEUM: Unremarkable. No free fluid. No free air. There is subcutaneous edema consistent with anasarca LYMPH NODES: Unremarkable. No enlarged lymph nodes. BLADDER: Unremarkable. REPRODUCTIVE: Unremarkable. BONES: No acute fracture. OTHER FINDINGS: There are some surgical clips in the left inguinal region. IMPRESSION: No evidence of central pulmonary emboli. Bilateral pleural effusions with multiple loculations.
[2017-11-15 18:12] LABS: CK-MB 1.09 ng/mL (0.0-3.38); TROPONIN I 0.024 ng/mL (0.00-0.120)
[2017-11-16 08:01] LABS: BASO % 0.3 % (0.0-2.0); EOS % 0.5 % (0.0-4.0); HEMOGLOBIN 12.1 g/dL (12.0-18.0); LYMPH # 1.3 K/uL (1.0-4.3); MEAN CELL VOLUME 88.6 fL (80.0-94.0); MEAN CORPUSCULAR HEMOGLOBIN 29.5 pg (27.0-31.0); MEAN CORPUSCULAR HGB CONC 33.3 g/dL (33.0-37.0); MEAN PLATELET VOLUME 10.2 fL (7.2-11.7); MONO # 0.7 K/uL (0.0-0.8); MONO % 10.9 % (0.0-10.0); NEUT # 4.3 K/uL (1.8-7.0); NEUT % 68.3 % (50.0-75.0); NRBC % 0.1 % (0.0-2.0); RBC 4.1 Mil/uL (4.40-5.90); RED CELL DISTRIBUTION WIDTH 16.6 % (11.5-14.5); WHITE BLOOD COUNT 6.3 K/uL (4.8-10.8)
[2017-11-16 08:04] LABS: INR 1.6
[2017-11-16 08:43] LABS: ALB/GLOB RATIO 1.2 (1.0-2.1); ALBUMIN 3.3 g/dL (3.5-5.0); CALCIUM 9.2 mg/dl (8.6-10.4)
--- NOTE | 2017-11-16 08:51 | CP.PCM.PN ---
Subjective - Date & Time of Evaluation Date of Evaluation: 11/16/17 Time of Evaluation: 07:20 - Subjective Subjective: Cardiothoracic progress note for Dr. Melissa Patient seen and examined at bedside. No adverse events overnight. Patient says his chest pressure is still present but better, has sharp pain in his right chest with coughing, but denies any fevers or chills. Objective - Vital Signs/Intake and Output Vital Signs (last 24 hours): Temp Pulse Resp BP Pulse Ox 97.4 F L 77 20 135/95 H 98 11/16/17 07:15 11/16/17 07:15 11/16/17 07:15 11/16/17 07:15 11/16/17 07:15 - Medications Medications: Current Medications Furosemide (Lasix) 20 mg IVP DAILY [facility] Last Admin: 11/15/17 09:46 Dose: 20 mg Heparin Sodium (Porcine) (Heparin) 5,000 units SC Q12 [facility] Last Admin: 11/15/17 21:34 Dose: 5,000 units Influenza Virus Vaccine (Fluzone Quad [id number]) 60 mcg IM .ONCE ONE Stop: 11/16/17 14:01 Pneumococcal Polyvalent Vaccine (Pneumovax 23 Vaccine) 0.5 ml IM .ONCE ONE Stop: 11/16/17 10:01 - Labs Labs: 11/16/17 07:45 11/16/17 07:45 PT 18.0 SECONDS (9.7-12.2) H 11/16/17 07:45 INR 1.6 11/16/17 07:45 APTT 35 SECONDS (21-34) H 11/16/17 07:45 - Constitutional Appears: Well, Non-toxic, No Acute Distress - Head Exam Head Exam: ATRAUMATIC, NORMOCEPHALIC - Eye Exam Eye Exam: EOMI. absent: Conjunctival injection, Scleral icterus - ENT Exam ENT Exam: Mucous Membranes Moist, Normal Oropharynx - Respiratory Exam Respiratory Exam: NORMAL BREATHING PATTERN. absent: Accessory Muscle Use, Respiratory Distress - Cardiovascular Exam Cardiovascular Exam: RRR - GI/Abdominal Exam GI & Abdominal Exam: Soft. absent: Distended - Neurological Exam Neurological Exam: Alert, Awake, Oriented x3 - Psychiatric Exam Psychiatric exam: Normal Affect, Normal Mood - Skin Skin Exam: Dry, Normal Color, Warm Assessment and Plan - Assessment and Plan (Free Text) Assessment: 82M with BL pleural effusions L>R, and area of subsegmental atelectasis vs mass in the right lung fissure Plan: Discussed case with IR--percutaneous biopsy unobtainable d/t location of area of concern. Recommend PET CT to discern mass vs fluid collection F/U cardio and pulmonary recs Medical management per primary Will continue to follow--no plans for surgical intervention at this time as diagnosis is not certain at this time Discussed with Dr. Melissa, who agrees with above Annita Penny, PGY2
[2017-11-16] MEDS ORDERED: Pneumococcal 23-Valent Vaccine IM ONE (10:00)
[2017-11-16] MEDS ORDERED: Phytonadione 10 mg/ml Inj (Adult) SC STA (11:03)
[2017-11-16] MEDS ORDERED: Influenza Vaccine 60 MCG/0.5 ML SYR (3 yr & up) IM ONE (14:00)
[2017-11-16 15:52] VITALS: RESP 20
--- NOTE | 2017-11-16 16:04 | CP.PCM.PN ---
<Lexy Hood - Last Filed: 11/16/17 21:27> Subjective - Date & Time of Evaluation Date of Evaluation: 11/16/17 Time of Evaluation: 09:20 - Subjective Subjective: Pt seen and examined in room, sitting comfortably in chair eating breakfast. No overnight events. Pt reports that chest pressure, and SOB has improved from admission. Pt denies fevers, chest pain, cough, abd pain, n/v/d. Pt expresses that he is eager to return home. Objective - Vital Signs/Intake and Output Vital Signs (last 24 hours): Temp Pulse Resp BP Pulse Ox 97.3 F L 92 H 20 132/102 H 95 11/16/17 15:50 11/16/17 15:50 11/16/17 15:50 11/16/17 15:50 11/16/17 15:50 Intake and Output: 11/16/17 11/16/17 06:59 18:59 Intake Total 650 Output Total 350 Balance 300 - Medications Medications: Current Medications Furosemide (Lasix) 20 mg IVP DAILY [facility] Last Admin: 11/16/17 10:36 Dose: Not Given Heparin Sodium (Porcine) (Heparin) 5,000 units SC Q12 [facility] Last Admin: 11/16/17 10:34 Dose: 5,000 units - Labs Labs: 11/16/17 07:45 11/16/17 07:45 PT 18.0 SECONDS (9.7-12.2) H 11/16/17 07:45 INR 1.6 11/16/17 07:45 APTT 35 SECONDS (21-34) H 11/16/17 07:45 - Constitutional Appears: Non-toxic - Head Exam Head Exam: ATRAUMATIC, NORMAL INSPECTION, NORMOCEPHALIC - Eye Exam Eye Exam: absent: Normal appearance (cloudy sclerae, eyes moist and tearing ) - ENT Exam ENT Exam: Mucous Membranes Moist - Neck Exam Neck Exam: Normal Inspection - Respiratory Exam Respiratory Exam: Decreased Breath Sounds, Rhonchi, NORMAL BREATHING PATTERN - Cardiovascular Exam Cardiovascular Exam: REGULAR RHYTHM, +S1, +S2 - GI/Abdominal Exam GI & Abdominal Exam: Soft, Normal Bowel Sounds. absent: Distended, Tenderness - Extremities Exam Extremities Exam: Normal Inspection. absent: Calf Tenderness, Pedal Edema - Neurological Exam Neurological Exam: Alert, Awake, Oriented x3 - Psychiatric Exam Psychiatric exam: Normal Affect, Normal Mood - Skin Skin Exam: Dry, Intact, Normal Color, Warm Assessment and Plan - Assessment and Plan (Free Text) Assessment: 82 y/o male with pmhx HTN admitted with bilateral loculated pleural effusions Bilateral loculated pleural effusions - Chest CT: Large left sided pleural effusion, likely loculated. small loculated pleural collections at the right lung base into the right upper lobe and apex. - IR consult Dr. Walsh - Pleural fluid studies, LDH, PH, protein, cytology, cell count w/ diff - Optimize INR - CT consult Dr. Melissa, no surgical intervention at this time per note Elevated BNP -f/u echo INR - Current INR 1.6 - K 10 mg sc given - AM INR HTN -Norvasc 10mg qd PPX - Heparin 5,000 q12 To IR tmrw pending INR, NPO @ m[place], resume diet if INR inadequate <Gonzalez Deras H - Last Filed: 11/17/17 07:50> Objective - Vital Signs/Intake and Output Vital Signs (last 24 hours): Temp Pulse Resp BP Pulse Ox 97.8 F 77 20 133/96 H 98 11/17/17 00:00 11/17/17 00:00 11/17/17 00:00 11/17/17 00:00 11/17/17 00:00 - Medications Medications: Current Medications Amlodipine Besylate (Norvasc) 10 mg PO DAILY [facility] Last Admin: 11/16/17 16:59 Dose: 10 mg Furosemide (Lasix) 20 mg IVP DAILY [facility] Last Admin: 11/16/17 10:36 Dose: Not Given Heparin Sodium (Porcine) (Heparin) 5,000 units SC Q12 [facility] Last Admin: 11/16/17 10:34 Dose: 5,000 units - Labs Labs: 11/16/17 07:45 11/16/17 07:45 PT 18.0 SECONDS (9.7-12.2) H 11/16/17 07:45 INR 1.6 11/16/17 07:45 APTT 35 SECONDS (21-34) H 11/16/17 07:45 Attending/Attestation - Attestation I have personally seen and examined this patient.: Yes I have fully participated in the care of the patient.: Yes I have reviewed all pertinent clinical information, including history, physical exam and plan: Yes Notes (Text): 11/17/17 07:50 Medical attending: Patient was seen and examined by me, reviewed the above note by the medical director occupational health and agree with the above note. The patient was not in any acute distress when we saw him, he was talking on his phone. As mentioned previously patient has pleural effusions as well as areas of loculation. Hopefully will be able to get a thoracentesis and send this off for analysis. I am concerned that there may represent some sort of malignancy as the patient has been having Substantial weight loss. We will give vitamin K as his INR is 1.6. And will recheck an INR. Thank you very much, Gonzalez Deras
--- NOTE | 2017-11-16 17:33 | CP.PCM.PN ---
Subjective - Date & Time of Evaluation Date of Evaluation: 11/16/17 Time of Evaluation: 13:00 - Subjective Subjective: patient seen and examined Still complaining of shortness of breath Afebrile thoracentesis planned for tomorrow follow-up PT/INR Continue present treatment for now Objective - Vital Signs/Intake and Output Vital Signs (last 24 hours): Temp Pulse Resp BP Pulse Ox 97.3 F L 92 H 20 132/102 H 95 11/16/17 15:50 11/16/17 15:50 11/16/17 15:50 11/16/17 15:50 11/16/17 15:50 Intake and Output: 11/16/17 11/16/17 06:59 18:59 Intake Total 650 Output Total 350 Balance 300 - Medications Medications: Current Medications Amlodipine Besylate (Norvasc) 10 mg PO DAILY [facility] Last Admin: 11/16/17 16:59 Dose: 10 mg Furosemide (Lasix) 20 mg IVP DAILY [facility] Last Admin: 11/16/17 10:36 Dose: Not Given Heparin Sodium (Porcine) (Heparin) 5,000 units SC Q12 [facility] Last Admin: 11/16/17 10:34 Dose: 5,000 units - Labs Labs: 11/16/17 07:45 11/16/17 07:45 PT 18.0 SECONDS (9.7-12.2) H 11/16/17 07:45 INR 1.6 11/16/17 07:45 APTT 35 SECONDS (21-34) H 11/16/17 07:45 Assessment and Plan (1) Dyspnea on exertion Status: Acute (2) Pleural effusion Status: Acute
[2017-11-16 18:05] LABS: TOTAL PSA 0.5 ng/mL (< or = 4.0)
--- NOTE | 2017-11-17 07:14 | CP.PCM.PN ---
<Meg Newby P - Last Filed: 11/17/17 18:21> Subjective - Date & Time of Evaluation Date of Evaluation: 11/17/17 Time of Evaluation: 07:14 - Subjective Subjective: PGY-[address] Deras. Patient seen and examined at bedside. Patient states cough and breathing has improved. Endorses chest soreness only with coughing. Denies fever, chills, headache, nausea, vomiting, and abdominal pain. Patient went for L thoracentesis today with IR, had 1L fluid removed. Objective - Vital Signs/Intake and Output Vital Signs (last 24 hours): Temp Pulse Resp BP Pulse Ox 97.8 F 77 20 133/96 H 98 11/17/17 00:00 11/17/17 00:00 11/17/17 00:00 11/17/17 00:00 11/17/17 00:00 - Medications Medications: Current Medications Amlodipine Besylate (Norvasc) 10 mg PO DAILY [facility] Last Admin: 11/16/17 16:59 Dose: 10 mg Furosemide (Lasix) 20 mg IVP DAILY [facility] Last Admin: 11/16/17 10:36 Dose: Not Given Heparin Sodium (Porcine) (Heparin) 5,000 units SC Q12 [facility] Last Admin: 11/16/17 10:34 Dose: 5,000 units - Labs Labs: 11/16/17 07:45 11/16/17 07:45 PT 18.0 SECONDS (9.7-12.2) H 11/16/17 07:45 INR 1.6 11/16/17 07:45 APTT 35 SECONDS (21-34) H 11/16/17 07:45 - Constitutional Appears: No Acute Distress - Head Exam Head Exam: ATRAUMATIC, NORMOCEPHALIC - Eye Exam Additional comments: Pt blind bilaterally - ENT Exam ENT Exam: Mucous Membranes Moist - Neck Exam Neck Exam: Full ROM, Normal Inspection - Respiratory Exam Respiratory Exam: Decreased Breath Sounds. absent: Rales, Rhonchi, Wheezes - Cardiovascular Exam Cardiovascular Exam: REGULAR RHYTHM, +S1, +S2 - GI/Abdominal Exam GI & Abdominal Exam: Soft. absent: Guarding, Tenderness, Rebound - Extremities Exam Extremities Exam: Pedal Edema (trace bilaterally). absent: Tenderness - Neurological Exam Neurological Exam: Alert, Awake, Oriented x3 - Psychiatric Exam Psychiatric exam: Normal Affect, Normal Mood - Skin Skin Exam: Dry, Intact, Normal Color, Warm Assessment and Plan - Assessment and Plan (Free Text) Plan: 82 y/o male with pmhx HTN admitted with bilateral loculated pleural effusions. Bilateral loculated pleural effusions - Chest CT: Large left sided pleural effusion, likely loculated. small loculated pleural collections at the right lung base into the right upper lobe and apex. - IR consult Dr. Walsh S/p L thoracentesis today, 1L fluid removed. Patient tolerated well. - Pleural fluid studies, LDH, PH, protein, cytology, cell count w/ diff - Optimize INR - CT consult Dr. Melissa, no surgical intervention at this time per note Surgery recs: PET/CT as outpt, no further surgical intervention as inpatient Elevated BNP -f/u echo INR - Current INR 1.6 HTN -Norvasc 10mg qd PPX - Heparin 5,000 q12 -Heart healthy diet <Deras,Peter H - Last Filed: 11/17/17 18:33> Objective - Vital Signs/Intake and Output Vital Signs (last 24 hours): Temp Pulse Resp BP Pulse Ox 97.5 F L 85 20 132/82 98 11/17/17 15:20 11/17/17 15:20 11/17/17 15:20 11/17/17 15:20 11/17/17 15:20 Intake and Output: 11/17/17 11/17/17 06:59 18:59 Intake Total 400 Balance 400 - Medications Medications: Current Medications Amlodipine Besylate (Norvasc) 10 mg PO DAILY [facility] Last Admin: 11/17/17 09:53 Dose: 10 mg Furosemide (Lasix) 20 mg IVP DAILY [facility] Last Admin: 11/16/17 10:36 Dose: Not Given Heparin Sodium (Porcine) (Heparin) 5,000 units SC Q12 [facility] Last Admin: 11/16/17 10:34 Dose: 5,000 units - Labs Labs: 11/17/17 07:44 11/17/17 07:44 PT 17.1 SECONDS (9.7-12.2) H 11/17/17 07:44 INR 1.6 11/17/17 07:44 APTT 35 SECONDS (21-34) H 11/16/17 07:45 Attending/Attestation - Attestation I have personally seen and examined this patient.: Yes I have fully participated in the care of the patient.: Yes I have reviewed all pertinent clinical information, including history, physical exam and plan: Yes Notes (Text): 11/17/17 18:33 Medical attending: Patient was seen and examined by me, reviewed the above note by the medical lab technician and agree with the above note. The patient later on in the day underwent IR and had one thousand cc removed. He tolerated the procedure well I saw him after thoracentesis. His breathing is better than before. We decreased his Lasix as well to just 20 once a day since the previous day the creatinine bumped up to 2.1, today down to 1.6 The 2D echo returned and showed he does have severe TR noted. The EF was normal range Thank you very much, Gonzalez Deras
[2017-11-17 07:51] LABS: BASO % 0.4 % (0.0-2.0); EOS # 0.1 K/uL (0.0-0.7); EOS % 0.7 % (0.0-4.0); HEMOGLOBIN 11.8 g/dL (12.0-18.0); LYMPH # 1.2 K/uL (1.0-4.3); LYMPH % 16.2 % (20.0-40.0); MEAN CELL VOLUME 88.4 fL (80.0-94.0); MEAN CORPUSCULAR HEMOGLOBIN 29.5 pg (27.0-31.0); MEAN CORPUSCULAR HGB CONC 33.4 g/dL (33.0-37.0); MEAN PLATELET VOLUME 9.9 fL (7.2-11.7); MONO % 13.8 % (0.0-10.0); NEUT % 68.9 % (50.0-75.0); NRBC % 0.1 % (0.0-2.0); RBC 3.99 Mil/uL (4.40-5.90); RED CELL DISTRIBUTION WIDTH 17.2 % (11.5-14.5); WHITE BLOOD COUNT 7.3 K/uL (4.8-10.8)
[2017-11-17 07:55] LABS: INR 1.6; PROTHROMBIN TIME 17.1 SECONDS (9.7-12.2)
[2017-11-17 08:46] LABS: ALB/GLOB RATIO 1.2 (1.0-2.1); ALBUMIN 3.1 g/dL (3.5-5.0)
[2017-11-17] MEDS ORDERED: Phytonadione 10 mg/ml Inj (Adult) SC ONE (11:45)
--- NOTE | 2017-11-17 11:55 | CARD ---
APPROVED REPORT Date of service: 11/16/2017 EXAM: Two-dimensional and M-mode echocardiogram with Doppler and color Doppler. INDICATION Dyspnea Congestive Heart Failure RISK FACTORS Hypertension 2D DIMENSIONS IVSd1.2 (0.7-1.1cm)Aortic Root (2D)3.3 (2.0-3.7cm) LVDd5.3 (3.9-5.9cm)PWd0.9 (0.7-1.1cm) LVDs3.6 (2.5-4.0cm)FS (%) 31.7 % LVEF (%)59.2 (>50%) M-Mode DIMENSIONS Left Atrium (MM)2.86 (2.5-4.0cm)IVSd0.80 (0.7-1.1cm) Aortic Root3.58 (2.2-3.7cm)LVDd5.03 (4.0-5.6cm) Aortic Cusp Exc.1.92 (1.5-2.0cm)PWd1.01 (0.7-1.1cm) FS (%) 26 %LVDs3.75 (2.0-3.8cm) LVEF (%)55 (>50%) Mitral Valve MV E Hxzgjuzy628.5cm/sMV A Msgzmolh38.4cm/sE/A ratio3.2 TDI Lateral E' Peak V11.90cm/sMedial E' Peak V7.58cm/sE/Lateral E'12.1 E/Medial E'18.9 Tricuspid Valve TR Peak Cjnpjlen347ji/sTR Peak Gr.67pqYiRUVR11yxYg LEFT VENTRICLE The left ventricle is normal size. There is normal left ventricular wall thickness. The left ventricular function is normal. The left ventricular ejection fraction is within the normal range. The left ventricular function is normal. The left ventricular ejection fraction is within the normal range. There is normal LV segmental wall motion. The left ventricular diastolic function is normal. RIGHT VENTRICLE The right ventricle is normal size. There is normal right ventricular wall thickness. ATRIA The left atrium size is normal. The right atrium size is normal. AORTIC VALVE There is trace to mild aortic regurgitation. MITRAL VALVE Mitral regurgitation is mild to moderate. TRICUSPID VALVE There is severe tricuspid regurgitation. <Conclusion> Normal LV systolic function. Normal chamber szie. Trace AR. Mild to moderate MR. Severe TR.
--- NOTE | 2017-11-17 12:12 | PCM.SURG1 ---
Surgeon's Initial Post Op Note - Surgeon's Notes Surgeon: Jp Walsh MD Web Page Designer: NONE Type of Anesthesia: Local Pre-Operative Diagnosis: Left pleural effusion Operative Findings: US showed a large left effusion Post-Operative Diagnosis: Left pleural effusion Operation Performed: US guided left thoracentesis Specimen/Specimens Removed: 1 liter of clear yellow fluid Estimated Blood Loss: EBL {In ML}: 0 Blood Products Given: N/A Drains Used: No Drains Post-Op Condition: Fair Date of Surgery/Procedure: 11/17/17 Time of Surgery/Procedure: 12:10
--- NOTE | 2017-11-17 12:35 | CARD ---
APPROVED REPORT Date of service: 11/15/2017 EKG Measurement Heart [id number] <Conclusion> Atrial-sensed ventricular-paced rhythm Abnormal ECG
--- NOTE | 2017-11-17 12:47 | CARD ---
APPROVED REPORT Date of service: 11/15/2017 EKG Measurement Heart [id number] <Conclusion> Atrial-sensed ventricular-paced rhythm with frequent and consecutive premature ventricular complexes Abnormal ECG
--- NOTE | 2017-11-17 13:46 | US ---
PROCEDURE: Date of procedure: Procedure: 1. Ultrasound-guided left thoracentesis, CPT 23672 Medications: 5cc 1% Lidocaine HISTORY: Left pleural effusion, shortness of breath TECHNIQUE: Following informed consent ,the Patients' left chest was marked. Procedure time-out was called, and the patient was placed in the sitting position and limited ultrasound showed a large left effusion. The patient's left back was prepped and draped in the usual sterile fashion. After the skin was anesthetized with lidocaine, a drainage catheter was advanced under ultrasound guidance into the pleural space. Ultrasound-guided thoracentesis was performed. A total of 1000 cubic centimeters of straw-colored fluid removed without complication. A Xeroform dressing was applied. IMPRESSION: Ultrasound guided left thoracentesis. There were no immediate complications.
--- NOTE | 2017-11-17 13:47 | RAD ---
Date of service: 11/17/2017 HISTORY: S/P Left thoracentesis COMPARISON: No prior. FINDINGS: LUNGS: No active pulmonary disease. PLEURA: Multiple round density seen within the right lung consistent with loculated pleural effusions seen on CT of chest. There is a linear artifact on the left lower lung field. Lung markings seen extending beyond this. No definite pneumothorax. CARDIOVASCULAR: Slight cardiomegaly. OSSEOUS STRUCTURES: No significant abnormalities. VISUALIZED UPPER ABDOMEN: Normal. OTHER FINDINGS: None. IMPRESSION: No definite pneumothorax left lung. Loculated fluid collections right lung.
--- NOTE | 2017-11-17 16:08 | CP.PCM.PN ---
<Iam Harley S - Last Filed: 11/17/17 17:16> Subjective - Date & Time of Evaluation Date of Evaluation: 11/17/17 Time of Evaluation: 15:45 - Subjective Subjective: Patient seen and examined Breathing better Status post thoracentesis Afebrile No chest pain Objective - Vital Signs/Intake and Output Vital Signs (last 24 hours): Temp Pulse Resp BP Pulse Ox 97.5 F L 85 20 132/82 98 11/17/17 15:20 11/17/17 15:20 11/17/17 15:20 11/17/17 15:20 11/17/17 15:20 Intake and Output: 11/17/17 11/17/17 06:59 18:59 Intake Total 400 Balance 400 - Medications Medications: Current Medications Amlodipine Besylate (Norvasc) 10 mg PO DAILY [facility] Last Admin: 11/17/17 09:53 Dose: 10 mg Furosemide (Lasix) 20 mg IVP DAILY [facility] Last Admin: 11/16/17 10:36 Dose: Not Given Heparin Sodium (Porcine) (Heparin) 5,000 units SC Q12 [facility] Last Admin: 11/16/17 10:34 Dose: 5,000 units - Labs Labs: 11/17/17 07:44 11/17/17 07:44 PT 17.1 SECONDS (9.7-12.2) H 11/17/17 07:44 INR 1.6 11/17/17 07:44 APTT 35 SECONDS (21-34) H 11/16/17 07:45 - Head Exam Head Exam: ATRAUMATIC, NORMOCEPHALIC - Eye Exam Eye Exam: Normal appearance - ENT Exam ENT Exam: Mucous Membranes Moist - Respiratory Exam Respiratory Exam: Decreased Breath Sounds - Cardiovascular Exam Cardiovascular Exam: REGULAR RHYTHM - GI/Abdominal Exam GI & Abdominal Exam: Soft Assessment and Plan (1) Dyspnea on exertion Status: Acute (2) Pleural effusion Assessment & Plan: status post thoracentesis Fluid analysis Continue present treatment Status: Acute <Gonzalez Deras - Last Filed: 11/17/17 18:31> Objective - Vital Signs/Intake and Output Vital Signs (last 24 hours): Temp Pulse Resp BP Pulse Ox 97.5 F L 85 20 132/82 98 11/17/17 15:20 11/17/17 15:20 11/17/17 15:20 11/17/17 15:20 11/17/17 15:20 Intake and Output: 11/17/17 11/17/17 06:59 18:59 Intake Total 400 Balance 400 - Medications Medications: Current Medications Amlodipine Besylate (Norvasc) 10 mg PO DAILY [facility] Last Admin: 11/17/17 09:53 Dose: 10 mg Furosemide (Lasix) 20 mg IVP DAILY [facility] Last Admin: 11/16/17 10:36 Dose: Not Given Heparin Sodium (Porcine) (Heparin) 5,000 units SC Q12 [facility] Last Admin: 11/16/17 10:34 Dose: 5,000 units - Labs Labs: 11/17/17 07:44 11/17/17 07:44 PT 17.1 SECONDS (9.7-12.2) H 11/17/17 07:44 INR 1.6 11/17/17 07:44 APTT 35 SECONDS (21-34) H 11/16/17 07:45 Attending/Attestation - Attestation I have personally seen and examined this patient.: Yes I have fully participated in the care of the patient.: Yes I have reviewed all pertinent clinical information, including history, physical exam and plan: Yes Notes (Text): 11/17/17 18:31 Medical attending: Patient was seen and examined by me, reviewed the above note by the medical claims processor and agree with the above note. The patient later on in the day underwent IR and had one thousand cc removed. He tolerated the procedure well I saw him after thoracentesis. His breathing is better than before. We decreased his Lasix as well to just 20 once a day since the previous day the creatinine bumped up to 2.1, today down to 1.6 Thank you very much, Gonzalez Deras
[2017-11-17 16:24] LABS: BODY FLUID TYPE PERITONEAL
[2017-11-17 16:25] LABS: BF GROSS APPEARANCE SL CLOUDY (CLEAR)
[2017-11-17 16:26] LABS: BODY FLUID MONO/MACROPHAGE 11 % (0-0)
--- NOTE | 2017-11-17 17:46 | CP.PCM.PCO ---
Physician Communication Note - Physician Communication Note Physician Communication Note: Recommend PET/CT as outpt, no further surgical intervention as inpatient
[2017-11-18 07:44] LABS: BASO % 0.5 % (0.0-2.0); EOS % 0.7 % (0.0-4.0); MEAN CELL VOLUME 88.9 fL (80.0-94.0); MEAN CORPUSCULAR HEMOGLOBIN 29.5 pg (27.0-31.0); MEAN CORPUSCULAR HGB CONC 33.2 g/dL (33.0-37.0); MEAN PLATELET VOLUME 9.5 fL (7.2-11.7); MONO # 0.7 K/uL (0.0-0.8); NEUT # 4.4 K/uL (1.8-7.0); NEUT % 71.8 % (50.0-75.0); NRBC % 0.1 % (0.0-2.0); RBC 4.06 Mil/uL (4.40-5.90); RED CELL DISTRIBUTION WIDTH 17.1 % (11.5-14.5); WHITE BLOOD COUNT 6.1 K/uL (4.8-10.8)
[2017-11-18 08:45] LABS: ALB/GLOB RATIO 1.1 (1.0-2.1); CALCIUM 8.7 mg/dl (8.6-10.4)
--- NOTE | 2017-11-18 13:52 | CP.PCM.PN ---
Subjective - Date & Time of Evaluation Date of Evaluation: 11/18/17 Time of Evaluation: 10:30 - Subjective Subjective: patient seen and examined Breathing better Status post thoracentesis Objective - Vital Signs/Intake and Output Vital Signs (last 24 hours): Temp Pulse Resp BP Pulse Ox 97.9 F 88 20 129/76 96 11/18/17 08:05 11/18/17 09:13 11/18/17 08:05 11/18/17 08:05 11/18/17 08:05 Intake and Output: 11/18/17 11/18/17 06:59 18:59 Intake Total 500 Output Total 300 Balance 200 - Medications Medications: Current Medications Amlodipine Besylate (Norvasc) 10 mg PO DAILY [facility] Last Admin: 11/18/17 09:58 Dose: 10 mg Furosemide (Lasix) 20 mg IVP DAILY [facility] Last Admin: 11/16/17 10:36 Dose: Not Given Heparin Sodium (Porcine) (Heparin) 5,000 units SC Q12 [facility] Last Admin: 11/18/17 09:57 Dose: 5,000 units - Labs Labs: 11/18/17 07:35 11/18/17 07:35 PT 17.1 SECONDS (9.7-12.2) H 11/17/17 07:44 INR 1.6 11/17/17 07:44 APTT 35 SECONDS (21-34) H 11/16/17 07:45 - Head Exam Head Exam: ATRAUMATIC, NORMOCEPHALIC - ENT Exam ENT Exam: Mucous Membranes Moist - Neck Exam Neck Exam: Normal Inspection - Respiratory Exam Respiratory Exam: Decreased Breath Sounds - Cardiovascular Exam Cardiovascular Exam: REGULAR RHYTHM - GI/Abdominal Exam GI & Abdominal Exam: Soft, Normal Bowel Sounds Assessment and Plan (1) Pleural effusion Assessment & Plan: status post thoracentesis Fluid analysis, including cytology Clinically improving Followup chest x-ray Status: Acute (2) Dyspnea on exertion Status: Acute
--- NOTE | 2017-11-18 14:35 | CP.PCM.PN ---
<Lexy Hood - Last Filed: 11/18/17 18:53> Subjective - Date & Time of Evaluation Date of Evaluation: 11/18/17 Time of Evaluation: 09:00 - Subjective Subjective: Pt examined at bedside, eating breakfast. Pt reports he is breathing better s/p thoracentesis. Pt denies any surgical site pain, chest pain, chills, adb pain, nausea. Pt reports he is eager to return home Objective - Vital Signs/Intake and Output Vital Signs (last 24 hours): Temp Pulse Resp BP Pulse Ox 97.9 F 90 20 129/76 96 11/18/17 08:05 11/18/17 14:29 11/18/17 08:05 11/18/17 08:05 11/18/17 08:05 Intake and Output: 11/18/17 11/18/17 06:59 18:59 Intake Total 500 Output Total 300 Balance 200 - Medications Medications: Current Medications Amlodipine Besylate (Norvasc) 10 mg PO DAILY [facility] Last Admin: 11/18/17 09:58 Dose: 10 mg Furosemide (Lasix) 20 mg IVP DAILY [facility] Last Admin: 11/16/17 10:36 Dose: Not Given Heparin Sodium (Porcine) (Heparin) 5,000 units SC Q12 [facility] Last Admin: 11/18/17 09:57 Dose: 5,000 units - Labs Labs: 11/18/17 07:35 11/18/17 07:35 PT 17.1 SECONDS (9.7-12.2) H 11/17/17 07:44 INR 1.6 11/17/17 07:44 APTT 35 SECONDS (21-34) H 11/16/17 07:45 - Constitutional Appears: Non-toxic, No Acute Distress - Head Exam Head Exam: ATRAUMATIC, NORMAL INSPECTION, NORMOCEPHALIC - Eye Exam Eye Exam: absent: Normal appearance (legally blind, eyes cloudy, tearing) - ENT Exam ENT Exam: Mucous Membranes Moist, Normal Exam - Neck Exam Neck Exam: Normal Inspection Additional comments: pacemaker scar noted - Respiratory Exam Respiratory Exam: Rales, Rhonchi, NORMAL BREATHING PATTERN. absent: Chest Wall Tenderness, Clear to Ausculation Bilateral - Cardiovascular Exam Cardiovascular Exam: REGULAR RHYTHM, Murmur. absent: Tachycardia - GI/Abdominal Exam GI & Abdominal Exam: Soft, Normal Bowel Sounds. absent: Distended, Tenderness - Extremities Exam Extremities Exam: Normal Inspection. absent: Calf Tenderness, Pedal Edema - Neurological Exam Neurological Exam: Alert, Awake, Oriented x3 - Psychiatric Exam Psychiatric exam: Normal Affect, Normal Mood - Skin Skin Exam: Dry, Intact, Normal Color, Warm Assessment and Plan - Assessment and Plan (Free Text) Assessment: 82 y/o male with pmhx HTN admitted with bilateral loculated pleural effusions Bilateral loculated pleural effusions - Chest CT: Large left sided pleural effusion, likely loculated. small loculated pleural collections at the right lung base into the right upper lobe and apex. - IR consult Dr. Walsh - Pleural fluid studies, LDH, PH, protein, cytology, cell count w/ diff - s/p left sided thoracentesis, 1L fluid drained - CT consult Dr. Melissa, no further intervention at this time Elevated BNP -echo shows severe TR -cardio consult Dr. Hill HTN -Norvasc 10mg qd -lasix held due to ERIBERTO PPX - Heparin 5,000 q12 -PT/OT <Gonzalez Deras H - Last Filed: 11/19/17 07:37> Objective - Vital Signs/Intake and Output Vital Signs (last 24 hours): Temp Pulse Resp BP Pulse Ox 97.9 F 90 20 130/90 95 11/19/17 00:00 11/19/17 00:00 11/19/17 00:00 11/19/17 00:00 11/19/17 00:00 - Medications Medications: Current Medications Amlodipine Besylate (Norvasc) 10 mg PO DAILY [facility] Last Admin: 11/18/17 09:58 Dose: 10 mg Furosemide (Lasix) 20 mg IVP DAILY [facility] Last Admin: 11/16/17 10:36 Dose: Not Given Heparin Sodium (Porcine) (Heparin) 5,000 units SC Q12 [facility] Last Admin: 11/18/17 21:56 Dose: 5,000 units - Labs Labs: 11/18/17 07:35 11/18/17 07:35 PT 17.1 SECONDS (9.7-12.2) H 11/17/17 07:44 INR 1.6 11/17/17 07:44 APTT 35 SECONDS (21-34) H 11/16/17 07:45 Attending/Attestation - Attestation I have personally seen and examined this patient.: Yes I have fully participated in the care of the patient.: Yes I have reviewed all pertinent clinical information, including history, physical exam and plan: Yes Notes (Text): 11/19/17 07:36 Medical attending: Patient was seen and examined by me, reviewed the above note by the manager medical affairs and agree with the above note. The patient was doing well. As mentioned before he had a thoracentesis and his breathing is better than before. He is now on Lasix just 20 once a day since the previous day the creatinine bumped up to 2.1, today down to 1.6 The 2D echo returned and showed he does have severe TR noted. The EF was normal range
--- NOTE | 2017-11-19 00:02 | CP.PCM.CON ---
History of Present Illness - History of Present Illness History of Present Illness: CC: Admitted for dyspnea HPI: 82 year old male with past medical history significant for HTN, heart murmur, s/p PPM, "lung contusion" and chronic back pain admitted for dsypnea s/p Thoracentacis. feels better. PMHx- as stated above PSHx- eye surgery at age 5 and 23, Pacemaker placement, left inguinal hernia repair. Fam Hx- Mother with DM, Dad with hypotension Meds- Aliskiren 300mg/12.5mg daily Social- denies alcohol, tobacco or illicit drug use. Retired. Former rehab teacher/counselor Allergies- PCN causes rash and swelling; Vegetables from the [employer] PMD- formerly Dr. Montoya. Currently does not have a PMD. Follows with Ent Nurse Dr. Longo Present on Admission - Present on Admission Any Indicators Present on Admission: No Review of Systems - EENT Eyes: As Per HPI Nose/Mouth/Throat: As Per HPI - Cardiovascular Cardiovascular: Chest Pain, Dyspnea on Exertion - Respiratory Respiratory: Cough, Dyspnea on Exertion - Gastrointestinal Gastrointestinal: absent: Abdominal Pain, Nausea, Vomiting - Genitourinary Genitourinary: Urinary Incontinence. absent: Dysuria, Flank Pain - Musculoskeletal Musculoskeletal: absent: Myalgias, Neck Pain - Integumentary Integumentary: absent: Bleeding Lesions, Change in Hair, Rash, Skin Pain - Neurological Neurological: absent: Weakness - Psychiatric Psychiatric: absent: Anhedonia, Anxiety - Hematologic/Lymphatic Hematologic: absent: Easy Bleeding, Easy Bruising Physical Exam - Constitutional Appears: Non-toxic, No Acute Distress - Head Exam Head Exam: ATRAUMATIC, NORMAL INSPECTION - Eye Exam Additional comments: eyelids are closed at this time - ENT Exam ENT Exam: Mucous Membranes Moist - Neck Exam Neck exam: Positive for: Full Rom - Cardiovascular Exam Cardiovascular Exam: REGULAR RHYTHM, +S1, +S2 - GI/Abdominal Exam GI & Abdominal Exam: Normal Bowel Sounds, Soft. absent: Distended, Firm, Tenderness - Extremities Exam Extremities exam: Positive for: full ROM, pedal edema, pedal pulses present. 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 There are contraindications to using this medcication with ACEinhibs/ARBs Patient with lower extremity edema and this will hold off on CCBs at this time. Monitor BP Status: Chronic (4) Prophylactic measure Assessment and Plan: Heparin SC Q12 GI Prophylaxis not currently indicated Status: Acute Continue Diuretic therapy for now Evaluate for home O2 need No Cardiac cath plan for now Past Patient History - Past Medical History & Family History Past Medical History?: Yes - Past Social History Smoking Status: Never Smoked Alcohol: None Home Situation {Lives}: With Family - CARDIAC Hx Hypertension: Yes - HEENT Hx Blind: Yes - MUSCULOSKELETAL/RHEUMATOLOGICAL Hx Falls: No - GENITOURINARY/GYNECOLOGICAL Hx Incontinence: Yes - PSYCHIATRIC Hx Substance Use: No - SURGICAL HISTORY Other/Comment: pacemaker insertion, Chest surgery from an accident - ANESTHESIA Hx Anesthesia: Yes Hx Anesthesia Reactions: No Meds Allergies/Adverse Reactions: Allergies Allergy/AdvReac Type Severity Reaction Status Date / Time parra Allergy RASH Verified 11/15/17 11:16 Penicillins Allergy RASH Verified 11/15/17 11:16 pepper (genus Capsicum) Allergy RASH Verified 11/15/17 11:16 potato Allergy RASH Verified 11/15/17 11:16 squash Allergy RASH Verified 11/15/17 11:16 tomato Allergy RASH Verified 11/15/17 11:16 - Medications Medications: Current Medications Amlodipine Besylate (Norvasc) 10 mg PO DAILY [facility] Last Admin: 11/18/17 09:58 Dose: 10 mg Furosemide (Lasix) 20 mg IVP DAILY [facility] Last Admin: 11/16/17 10:36 Dose: Not Given Heparin Sodium (Porcine) (Heparin) 5,000 units SC Q12 [facility] Last Admin: 11/18/17 21:56 Dose: 5,000 units Results - Vital Signs Recent Vital Signs: Last Vital Signs Temp 97.7 F 11/18/17 15:59 Pulse 71 11/18/17 17:00 Resp 20 11/18/17 15:59 BP 116/80 11/18/17 15:59 Pulse Ox 95 11/18/17 15:59 - Labs Result Diagrams: 11/18/17 07:35 11/18/17 07:35 Labs: Laboratory Results - last 24 hr 11/18/17 11/18/17 07:35 07:35 WBC 6.1 RBC 4.06 L Hgb 12.0 Hct 36.1 MCV 88.9 MCH 29.5 MCHC 33.2 RDW 17.1 H Plt Count 165 MPV 9.5 Neut % (Auto) 71.8 Lymph % (Auto) 16.0 L [place] % (Auto) 11.0 H Eos % (Auto) 0.7 Baso % (Auto) 0.5 Neut # (Auto) 4.4 Lymph # (Auto) 1.0 [place] # (Auto) 0.7 Eos # (Auto) 0.0 Baso # (Auto) 0.0 Sodium 140 Potassium 4.5 Chloride 105 Carbon Dioxide 28 Anion Gap 12 BUN 25 H Creatinine 1.4 Est GFR ( Amer) 59 Est GFR (Non-Af Amer) 48 Random Glucose 97 Calcium 8.7 Phosphorus 4.6 H Magnesium 2.1 Total Bilirubin 0.7 AST 30 ALT 56 Alkaline Phosphatase 110 Total Protein 5.5 L Albumin 3.0 L Globulin 2.6 Albumin/Globulin Ratio 1.1
[2017-11-19 07:49] LABS: BASO # 0.1 K/uL (0.0-0.2); BASO % 0.9 % (0.0-2.0); EOS % 0.8 % (0.0-4.0); HEMOGLOBIN 11.9 g/dL (12.0-18.0); LYMPH % 17.5 % (20.0-40.0); MEAN CELL VOLUME 88.6 fL (80.0-94.0); MEAN CORPUSCULAR HEMOGLOBIN 29.5 pg (27.0-31.0); MEAN CORPUSCULAR HGB CONC 33.3 g/dL (33.0-37.0); MEAN PLATELET VOLUME 9.8 fL (7.2-11.7); MONO # 0.7 K/uL (0.0-0.8); MONO % 12.4 % (0.0-10.0); NEUT % 68.4 % (50.0-75.0); NRBC % 0.1 % (0.0-2.0); RBC 4.03 Mil/uL (4.40-5.90); WHITE BLOOD COUNT 5.8 K/uL (4.8-10.8)
[2017-11-19 07:57] LABS: ALB/GLOB RATIO 1.2 (1.0-2.1); ALBUMIN 3.1 g/dL (3.5-5.0); CALCIUM 8.9 mg/dl (8.6-10.4)
--- NOTE | 2017-11-19 13:24 | CP.PCM.PN ---
Subjective - Date & Time of Evaluation Date of Evaluation: 11/19/17 Time of Evaluation: 13:23 - Subjective Subjective: Pulmonary Follow up, Covering Dr Harley The patient was Seen/interviewed and examined by me at the bedside, Medical records reviewed and Management issues were discussed and formulated with the house staff. Events reviewed Patient is afebrile and in no acute distress, resting comfortably upon entry. Patient reports he is feeling well overall. Pt denies chest pain, SOB, cough and wheezing. Objective - Vital Signs/Intake and Output Vital Signs (last 24 hours): Temp Pulse Resp BP Pulse Ox 97.4 F L 84 20 126/89 95 11/19/17 07:00 11/19/17 11:50 11/19/17 07:00 11/19/17 07:00 11/19/17 07:00 - Medications Medications: Current Medications Amlodipine Besylate (Norvasc) 10 mg PO DAILY [facility] Last Admin: 11/19/17 09:57 Dose: 10 mg Furosemide (Lasix) 20 mg IVP DAILY [facility] Last Admin: 11/16/17 10:36 Dose: Not Given Heparin Sodium (Porcine) (Heparin) 5,000 units SC Q12 [facility] Last Admin: 11/19/17 09:57 Dose: 5,000 units - Labs Labs: 11/19/17 07:20 11/19/17 07:20 PT 17.1 SECONDS (9.7-12.2) H 11/17/17 07:44 INR 1.6 11/17/17 07:44 APTT 35 SECONDS (21-34) H 11/16/17 07:45 - Constitutional Appears: Well, No Acute Distress - Head Exam Head Exam: ATRAUMATIC, NORMAL INSPECTION - Respiratory Exam Respiratory Exam: Decreased Breath Sounds, NORMAL BREATHING PATTERN - Cardiovascular Exam Cardiovascular Exam: REGULAR RHYTHM, +S1, +S2 Assessment and Plan (1) Pleural effusion Assessment & Plan: -Will follow up on thoracentesis analysis, including cytology. Status: Acute
--- NOTE | 2017-11-19 17:56 | CP.PCM.PN ---
<Lexy Hood - Last Filed: 11/19/17 20:30> Subjective - Date & Time of Evaluation Date of Evaluation: 11/19/17 Time of Evaluation: 11:10 - Subjective Subjective: Pt examined at bedside. No acute events overnight. Pt's son just flew in from [place] and I had a conversation with him regarding his father's condition after being given permission to do so. Pt denies chest pain, abd pain/n/v/d. Pt reports he is breathing better and just wants to go home. He understands he is staying to be cleared from any cardiac etiology of his his symptoms Objective - Vital Signs/Intake and Output Vital Signs (last 24 hours): Temp Pulse Resp BP Pulse Ox 97.6 F 70 20 113/69 97 11/19/17 15:00 11/19/17 15:00 11/19/17 15:00 11/19/17 15:00 11/19/17 15:00 Intake and Output: 11/19/17 11/19/17 06:59 18:59 Intake Total 650 Balance 650 - Medications Medications: Current Medications Amlodipine Besylate (Norvasc) 10 mg PO DAILY [facility] Last Admin: 11/19/17 09:57 Dose: 10 mg Furosemide (Lasix) 20 mg IVP DAILY [facility] Last Admin: 11/16/17 10:36 Dose: Not Given Heparin Sodium (Porcine) (Heparin) 5,000 units SC Q12 [facility] Last Admin: 11/19/17 09:57 Dose: 5,000 units - Labs Labs: 11/19/17 07:20 11/19/17 07:20 PT 17.1 SECONDS (9.7-12.2) H 11/17/17 07:44 INR 1.6 11/17/17 07:44 APTT 35 SECONDS (21-34) H 11/16/17 07:45 - Constitutional Appears: No Acute Distress - Head Exam Head Exam: ATRAUMATIC, NORMAL INSPECTION, NORMOCEPHALIC - ENT Exam ENT Exam: Mucous Membranes Moist, Normal Exam - Neck Exam Neck Exam: Normal Inspection - Respiratory Exam Respiratory Exam: Rhonchi, NORMAL BREATHING PATTERN - Cardiovascular Exam Cardiovascular Exam: REGULAR RHYTHM, +S1, +S2, Murmur. absent: Tachycardia - GI/Abdominal Exam GI & Abdominal Exam: Soft, Normal Bowel Sounds. absent: Distended, Tenderness - Extremities Exam Extremities Exam: Normal Inspection. absent: Calf Tenderness, Pedal Edema - Neurological Exam Neurological Exam: Alert, Awake, Normal Gait, Oriented x3 - Psychiatric Exam Psychiatric exam: Normal Affect, Normal Mood - Skin Skin Exam: Dry, Intact, Normal Color, Warm Assessment and Plan - Assessment and Plan (Free Text) Assessment: 82 y/o male with pmhx HTN admitted with bilateral loculated pleural effusions Bilateral loculated pleural effusions - Chest CT: Large left sided pleural effusion, likely loculated. small loculated pleural collections at the right lung base into the right upper lobe and apex. - IR consult Dr. Walsh - Pleural fluid studies, LDH, PH, protein, cytology, cell count w/ diff - s/p left sided thoracentesis, 1L fluid drained - CT consult Dr. Melissa, no further intervention at this time Elevated BNP -echo shows severe TR -cardio consult Dr. Hill, awaiting reevaluation HTN -Norvasc 10mg qd -lasix held due to ERIBERTO PPX -Heparin 5,000 q12 -PT/OT Dispo: D/C pending Sergio' recs, otherwise can follow up studies outpatient. <Gonzalez Deras H - Last Filed: 11/20/17 12:52> Objective - Vital Signs/Intake and Output Vital Signs (last 24 hours): Temp Pulse Resp BP Pulse Ox 98.2 F 85 20 115/75 100 11/20/17 08:00 11/20/17 12:29 11/20/17 08:00 11/20/17 09:21 11/20/17 08:00 Intake and Output: 11/20/17 11/20/17 06:59 18:59 Intake Total 580 Output Total 500 Balance 80 - Medications Medications: Current Medications Amlodipine Besylate (Norvasc) 10 mg PO DAILY [facility] Last Admin: 11/20/17 09:22 Dose: 10 mg Furosemide (Lasix) 20 mg IVP DAILY [facility] Last Admin: 11/16/17 10:36 Dose: Not Given Heparin Sodium (Porcine) (Heparin) 5,000 units SC Q12 [facility] Last Admin: 11/20/17 09:22 Dose: 5,000 units - Labs Labs: 11/20/17 07:46 11/20/17 07:46 PT 17.1 SECONDS (9.7-12.2) H 11/17/17 07:44 INR 1.6 10/03/18 07:44 APTT 35 SECONDS (21-34) H 11/16/17 07:45 Attending/Attestation - Attestation I have personally seen and examined this patient.: Yes I have fully participated in the care of the patient.: Yes I have reviewed all pertinent clinical information, including history, physical exam and plan: Yes Notes (Text): Medical attending: Patient was seen and examined by me with the medical insurance biller The patient was not in any acute distress, some of the pleural fluid studies returned and it appears transduative in nature The patient does have history of CHF and probably that is the etiology of the pleural fluid. Cardiology so far is not planning on any additional studies at this time. Possible we will discharge the patient soon. Will need XRAY of chest repeat Gonzalez Deras
[2017-11-20 07:52] LABS: BASO % 0.7 % (0.0-2.0); EOS # 0.1 K/uL (0.0-0.7); EOS % 2.9 % (0.0-4.0); LYMPH # 0.9 K/uL (1.0-4.3); LYMPH % 22.1 % (20.0-40.0); MEAN CELL VOLUME 88.8 fL (80.0-94.0); MEAN CORPUSCULAR HEMOGLOBIN 29.1 pg (27.0-31.0); MEAN CORPUSCULAR HGB CONC 32.7 g/dL (33.0-37.0); MEAN PLATELET VOLUME 9.5 fL (7.2-11.7); MONO # 0.6 K/uL (0.0-0.8); MONO % 13.4 % (0.0-10.0); NEUT # 2.6 K/uL (1.8-7.0); NEUT % 60.9 % (50.0-75.0); NRBC % 0.1 % (0.0-2.0); RBC 4.14 Mil/uL (4.40-5.90); RED CELL DISTRIBUTION WIDTH 17.3 % (11.5-14.5); WHITE BLOOD COUNT 4.3 K/uL (4.8-10.8)
[2017-11-20 08:28] LABS: ALB/GLOB RATIO 1.1 (1.0-2.1); ALBUMIN 3.1 g/dL (3.5-5.0); ALT/SGPT 40 U/L (21-72); AST/SGOT 34 U/L (17-59); BLOOD UREA NITROGEN 23 mg/dL (9-20); CALCIUM 8.8 mg/dl (8.6-10.4); GFR NON-AFRICAN AMERICAN 58
--- NOTE | 2017-11-20 09:25 | CP.PCM.PN ---
<Meg Newby P - Last Filed: 11/20/17 12:55> Subjective - Date & Time of Evaluation Date of Evaluation: 11/20/17 Time of Evaluation: 08:00 - Subjective Subjective: PGY-1 progress note for hospitalist service. Patient seen and examined at bedside. Admits to L chest soreness at thoracentesis site, but overall feels better. Denies shortness of breath, fever, chills, weakness, abdominal pain, diarrhea, and constipation. Objective - Vital Signs/Intake and Output Vital Signs (last 24 hours): Temp Pulse Resp BP Pulse Ox 98.2 F 90 20 115/75 100 11/20/17 08:00 11/20/17 09:21 11/20/17 08:00 11/20/17 09:21 11/20/17 08:00 Intake and Output: 11/20/17 11/20/17 06:59 18:59 Intake Total 580 Output Total 500 Balance 80 - Medications Medications: Current Medications Amlodipine Besylate (Norvasc) 10 mg PO DAILY [facility] Last Admin: 11/20/17 09:22 Dose: 10 mg Furosemide (Lasix) 20 mg IVP DAILY [facility] Last Admin: 11/16/17 10:36 Dose: Not Given Heparin Sodium (Porcine) (Heparin) 5,000 units SC Q12 [facility] Last Admin: 11/20/17 09:22 Dose: 5,000 units - Labs Labs: 11/20/17 07:46 11/20/17 07:46 PT 17.1 SECONDS (9.7-12.2) H 11/17/17 07:44 INR 1.6 11/17/17 07:44 APTT 35 SECONDS (21-34) H 11/16/17 07:45 - Constitutional Appears: No Acute Distress - Head Exam Head Exam: ATRAUMATIC, NORMOCEPHALIC - Eye Exam Additional comments: blind bilaterally - ENT Exam ENT Exam: Mucous Membranes Moist - Neck Exam Neck Exam: Full ROM, Normal Inspection - Respiratory Exam Respiratory Exam: Decreased Breath Sounds. absent: Rales, Rhonchi, Wheezes - Cardiovascular Exam Cardiovascular Exam: REGULAR RHYTHM. absent: +S1, +S2 - GI/Abdominal Exam GI & Abdominal Exam: Soft, Normal Bowel Sounds. absent: Guarding, Tenderness, Rebound - Extremities Exam Extremities Exam: Normal Inspection. absent: Joint Swelling, Pedal Edema, Tenderness - Neurological Exam Neurological Exam: Alert, Awake, Oriented x3 - Psychiatric Exam Psychiatric exam: Normal Affect, Normal Mood - Skin Skin Exam: Dry, Intact, Warm Assessment and Plan - Assessment and Plan (Free Text) Plan: 82 y/o male with pmhx HTN admitted with bilateral loculated pleural effusions Bilateral loculated pleural effusions - Chest CT: Large left sided pleural effusion, likely loculated. small loculated pleural collections at the right lung base into the right upper lobe and apex. - IR consult Dr. Walsh - Pleural fluid studies, LDH, PH, protein, cytology, cell count w/ diff - s/p left sided thoracentesis, 1L fluid drained - CT consult Dr. Melissa, no further intervention at this time Elevated BNP -echo shows severe TR -cardio consult Dr. Hill, awaiting reevaluation HTN -Norvasc 10mg qd -lasix held due to ERIBERTO PPX -Heparin 5,000 q12 -PT/OT Dispo: D/C pending Sergio' recs, otherwise can follow up studies outpatient. <Gonzalez Deras - Last Filed: 11/20/17 13:02> Objective - Vital Signs/Intake and Output Vital Signs (last 24 hours): Temp Pulse Resp BP Pulse Ox 98.2 F 85 20 115/75 100 11/20/17 08:00 11/20/17 12:29 11/20/17 08:00 11/20/17 09:21 11/20/17 08:00 Intake and Output: 11/20/17 11/20/17 06:59 18:59 Intake Total 580 Output Total 500 Balance 80 - Medications Medications: Current Medications Amlodipine Besylate (Norvasc) 10 mg PO DAILY [facility] Last Admin: 11/20/17 09:22 Dose: 10 mg Furosemide (Lasix) 20 mg IVP DAILY [facility] Last Admin: 11/16/17 10:36 Dose: Not Given Heparin Sodium (Porcine) (Heparin) 5,000 units SC Q12 [facility] Last Admin: 11/20/17 09:22 Dose: 5,000 units - Labs Labs: 11/20/17 07:46 11/20/17 07:46 PT 17.1 SECONDS (9.7-12.2) H 11/17/17 07:44 INR 1.6 11/17/17 07:44 APTT 35 SECONDS (21-34) H 11/16/17 07:45 Attending/Attestation - Attestation I have personally seen and examined this patient.: Yes I have fully participated in the care of the patient.: Yes I have reviewed all pertinent clinical information, including history, physical exam and plan: Yes Notes (Text): 11/20/17 13:00 Medical attending: Patient was seen and examined by me. Agree with the above note by the resident The patient was not in any acute distress when I came and saw him. Patient reported breathing has been ok Denied chest pain, denied palpitations, denied abdominal pain, denied headache. Cardiology as of previous note is not planning on further studies/procedure. Will repeat CXRAY, if the film looks ok we can consider discharge. Gonzalez Deras
--- NOTE | 2017-11-20 16:15 | RAD ---
Date of service: 11/20/2017 HISTORY: follow up on pleural effusion, he had thoracentesi COMPARISON: Comparison chest FINDINGS: LUNGS: Pulmonary venous congestive changes with bilateral lower lobe alveolar-type infiltrates and bilateral effusions. Elliptical shaped density right mid lung field. Likely represents fluid in the minor fissure PLEURA: As above. No pneumothorax apparent. CARDIOVASCULAR: 11/17/2017 cardiomegaly. No change bipolar pacemaker/defibrillator. OSSEOUS STRUCTURES: No significant abnormalities. VISUALIZED UPPER ABDOMEN: Normal. OTHER FINDINGS: None. IMPRESSION: Pulmonary venous congestive changes with bilateral lower lobe alveolar-type infiltrates and bilateral effusions. Elliptical shaped density right mid lung field. Likely represents fluid in the minor fissure
--- NOTE | 2017-11-20 18:47 | CARD ---
APPROVED REPORT Date of service: 11/14/2017 EKG Measurement Heart [id number] CT [id number] <Conclusion> Atrial-sensed ventricular-paced rhythm with occasional premature ventricular complexes Abnormal ECG
--- NOTE | 2017-11-20 22:38 | CP.PCM.PN ---
Subjective - Date & Time of Evaluation Date of Evaluation: 11/20/17 Time of Evaluation: 20:00 - Subjective Subjective: Pulmonary Follow up, Covering Dr Harley The patient was Seen/interviewed and examined by me at the bedside, Medical records reviewed and Management issues were discussed and formulated with the house staff. Events reviewed Patient is afebrile Adequate saturation 98% on RA Comfortable in no acute distress, resting comfortably upon entry. Patient reports he is feeling well overall. Pt denies chest pain, SOB, cough and wheezing. Objective - Vital Signs/Intake and Output Vital Signs (last 24 hours): Temp Pulse Resp BP Pulse Ox 97.9 F 88 20 125/81 98 11/20/17 15:00 11/20/17 18:08 11/20/17 15:00 11/20/17 21:45 11/20/17 15:00 Intake and Output: 11/20/17 11/21/17 18:59 06:59 Intake Total 400 Balance 400 - Medications Medications: Current Medications Amlodipine Besylate (Norvasc) 10 mg PO DAILY [facility] Last Admin: 11/20/17 09:22 Dose: 10 mg Furosemide (Lasix) 20 mg IVP Q12 [facility] Last Admin: 11/20/17 21:45 Dose: 20 mg Heparin Sodium (Porcine) (Heparin) 5,000 units SC Q12 [facility] Last Admin: 11/20/17 21:45 Dose: 5,000 units - Labs Labs: 11/20/17 07:46 11/20/17 07:46 PT 17.1 SECONDS (9.7-12.2) H 11/17/17 07:44 INR 1.6 11/17/17 07:44 APTT 35 SECONDS (21-34) H 11/16/17 07:45 Assessment and Plan (1) Pleural effusion Status: Acute
--- NOTE | 2017-11-20 22:52 | CP.PCM.PN ---
Subjective - Date & Time of Evaluation Date of Evaluation: 11/20/17 Time of Evaluation: 22:52 - Subjective Subjective: HPI: 82 year old male with past medical history significant for HTN, heart murmur, s/p PPM, "lung contusion" and chronic back pain admitted for dsypnea s/p Thoracentacis. feels better. PMHx- as stated above PSHx- eye surgery at age 5 and 23, Pacemaker placement, left inguinal hernia repair. Fam Hx- Mother with DM, Dad with hypotension Meds- Aliskiren 300mg/12.5mg daily Social- denies alcohol, tobacco or illicit drug use. Retired. Former rehab teacher/counselor Allergies- PCN causes rash and swelling; Vegetables from the [employer] PMD- formerly Dr. Montoya. Currently does not have a PMD. Follows with [employer] Dr. Longo Present on Admission - Present on Admission Any Indicators Present on Admission: No Review of Systems - EENT Eyes: As Per HPI Nose/Mouth/Throat: As Per HPI - Cardiovascular Cardiovascular: Chest Pain, Dyspnea on Exertion - Respiratory Respiratory: Cough, Dyspnea on Exertion - Gastrointestinal Gastrointestinal: absent: Abdominal Pain, Nausea, Vomiting - Genitourinary Genitourinary: Urinary Incontinence. absent: Dysuria, Flank Pain - Musculoskeletal Musculoskeletal: absent: Myalgias, Neck Pain - Integumentary Integumentary: absent: Bleeding Lesions, Change in Hair, Rash, Skin Pain - Neurological Neurological: absent: Weakness - Psychiatric Psychiatric: absent: Anhedonia, Anxiety - Hematologic/Lymphatic Hematologic: absent: Easy Bleeding, Easy Bruising Physical Exam - Constitutional Appears: Non-toxic, No Acute Distress - Head Exam Head Exam: ATRAUMATIC, NORMAL INSPECTION - Eye Exam Additional comments: eyelids are closed at this time - ENT Exam ENT Exam: Mucous Membranes Moist - Neck Exam Neck exam: Positive for: Full Rom - Cardiovascular Exam Cardiovascular Exam: REGULAR RHYTHM, +S1, +S2 - GI/Abdominal Exam GI & Abdominal Exam: Normal Bowel Sounds, Soft. absent: Distended, Firm, Tenderness - Extremities Exam Extremities exam: Positive for: full ROM, pedal edema, pedal pulses present. 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 There are contraindications to using this medcication with ACEinhibs/ARBs Patient with lower extremity edema and this will hold off on CCBs at this time. Monitor BP Status: Chronic (4) Prophylactic measure Assessment and Plan: Heparin SC Q12 GI Prophylaxis not currently indicated Status: Acute Continue Diuretic therapy for now Evaluate for home O2 need No Cardiac cath plan for now Objective - Vital Signs/Intake and Output Vital Signs (last 24 hours): Temp Pulse Resp BP Pulse Ox 97.9 F 88 20 125/81 98 11/20/17 15:00 11/20/17 18:08 11/20/17 15:00 11/20/17 21:45 11/20/17 15:00 Intake and Output: 11/20/17 11/21/17 18:59 06:59 Intake Total 400 Balance 400 - Medications Medications: Current Medications Amlodipine Besylate (Norvasc) 10 mg PO DAILY [facility] Last Admin: 11/20/17 09:22 Dose: 10 mg Furosemide (Lasix) 20 mg IVP Q12 [facility] Last Admin: 11/20/17 21:45 Dose: 20 mg Heparin Sodium (Porcine) (Heparin) 5,000 units SC Q12 [facility] Last Admin: 11/20/17 21:45 Dose: 5,000 units - Labs Labs: 11/20/17 07:46 11/20/17 07:46 PT 17.1 SECONDS (9.7-12.2) H 11/17/17 07:44 INR 1.6 11/17/17 07:44 APTT 35 SECONDS (21-34) H 11/16/17 07:45
--- NOTE | 2017-11-20 22:52 | CP.PCM.PN ---
Subjective - Date & Time of Evaluation Date of Evaluation: 11/19/17 Time of Evaluation: 17:35 - Subjective Subjective: HPI: 82 year old male with past medical history significant for HTN, heart murmur, s/p PPM, "lung contusion" and chronic back pain admitted for dsypnea s/p Thoracentacis. feels better. PMHx- as stated above PSHx- eye surgery at age 5 and 23, Pacemaker placement, left inguinal hernia repair. Fam Hx- Mother with DM, Dad with hypotension Meds- Aliskiren 300mg/12.5mg daily Social- denies alcohol, tobacco or illicit drug use. Retired. Former rehab teacher/counselor Allergies- PCN causes rash and swelling; Vegetables from the [place] PMD- formerly Dr. Montoya. Currently does not have a PMD. Follows with [employer] Dr. Longo Present on Admission - Present on Admission Any Indicators Present on Admission: No Review of Systems - EENT Eyes: As Per HPI Nose/Mouth/Throat: As Per HPI - Cardiovascular Cardiovascular: Chest Pain, Dyspnea on Exertion - Respiratory Respiratory: Cough, Dyspnea on Exertion - Gastrointestinal Gastrointestinal: absent: Abdominal Pain, Nausea, Vomiting - Genitourinary Genitourinary: Urinary Incontinence. absent: Dysuria, Flank Pain - Musculoskeletal Musculoskeletal: absent: Myalgias, Neck Pain - Integumentary Integumentary: absent: Bleeding Lesions, Change in Hair, Rash, Skin Pain - Neurological Neurological: absent: Weakness - Psychiatric Psychiatric: absent: Anhedonia, Anxiety - Hematologic/Lymphatic Hematologic: absent: Easy Bleeding, Easy Bruising Physical Exam - Constitutional Appears: Non-toxic, No Acute Distress - Head Exam Head Exam: ATRAUMATIC, NORMAL INSPECTION - Eye Exam Additional comments: eyelids are closed at this time - ENT Exam ENT Exam: Mucous Membranes Moist - Neck Exam Neck exam: Positive for: Full Rom - Cardiovascular Exam Cardiovascular Exam: REGULAR RHYTHM, +S1, +S2 - GI/Abdominal Exam GI & Abdominal Exam: Normal Bowel Sounds, Soft. absent: Distended, Firm, Tenderness - Extremities Exam Extremities exam: Positive for: full ROM, pedal edema, pedal pulses present. 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 There are contraindications to using this medcication with ACEinhibs/ARBs Patient with lower extremity edema and this will hold off on CCBs at this time. Monitor BP Status: Chronic (4) Prophylactic measure Assessment and Plan: Heparin SC Q12 GI Prophylaxis not currently indicated Status: Acute Continue Diuretic therapy for now Evaluate for home O2 need No Cardiac cath plan for now Objective - Vital Signs/Intake and Output Vital Signs (last 24 hours): Temp Pulse Resp BP Pulse Ox 97.9 F 88 20 125/81 98 11/20/17 15:00 11/20/17 18:08 11/20/17 15:00 11/20/17 21:45 11/20/17 15:00 Intake and Output: 11/20/17 11/21/17 18:59 06:59 Intake Total 400 Balance 400 - Medications Medications: Current Medications Amlodipine Besylate (Norvasc) 10 mg PO DAILY [facility] Last Admin: 11/20/17 09:22 Dose: 10 mg Furosemide (Lasix) 20 mg IVP Q12 NAT Last Admin: 11/20/17 21:45 Dose: 20 mg Heparin Sodium (Porcine) (Heparin) 5,000 units SC Q12 [facility] Last Admin: 11/20/17 21:45 Dose: 5,000 units - Labs Labs: 11/20/17 07:46 11/20/17 07:46 PT 17.1 SECONDS (9.7-12.2) H 11/17/17 07:44 INR 1.6 11/17/17 07:44 APTT 35 SECONDS (21-34) H 11/16/17 07:45
[2017-11-21 07:56] LABS: EOS # 0.1 K/uL (0.0-0.7); EOS % 2.5 % (0.0-4.0); HEMOGLOBIN 12.8 g/dL (12.0-18.0); LYMPH % 20.1 % (20.0-40.0); MEAN CELL VOLUME 89.5 fL (80.0-94.0); MEAN CORPUSCULAR HEMOGLOBIN 29.3 pg (27.0-31.0); MEAN CORPUSCULAR HGB CONC 32.7 g/dL (33.0-37.0); MEAN PLATELET VOLUME 9.7 fL (7.2-11.7); MONO # 0.8 K/uL (0.0-0.8); MONO % 15.4 % (0.0-10.0); NEUT # 3.1 K/uL (1.8-7.0); NRBC % 0.1 % (0.0-2.0); RBC 4.37 Mil/uL (4.40-5.90); RED CELL DISTRIBUTION WIDTH 17.1 % (11.5-14.5)
[2017-11-21 08:21] LABS: ALB/GLOB RATIO 1.2 (1.0-2.1); ALBUMIN 3.4 g/dL (3.5-5.0); ALT/SGPT 55 U/L (21-72); AST/SGOT 49 U/L (17-59); BLOOD UREA NITROGEN 28 mg/dL (9-20); GFR NON-AFRICAN AMERICAN 53
[2017-11-21 08:38] VITALS: PULSE 80; TEMP 97.4; O2SAT 99
[2017-11-21 09:41] VITALS: BP 130/72
--- NOTE | 2017-11-21 09:43 | CP.PCM.DIS ---
Provider - Provider Date of Admission: 11/15/17 05:15 Attending physician: Joe Hernandez MD Primary care physician: Dr Longo Consults: Dr Hill ~ Cardiology Dr Harley ~ Pulmonology Time Spent in preparation of Discharge (in minutes): 29 Diagnosis - Discharge Diagnosis (1) CHF (congestive heart failure) Status: Chronic Comment: 2 D Echo reveals that there is regurgitation in the heart vavles in particular the tricupsid valve. The patient was placed on small doses of IV lasix to help. The inital chest XRAY in the ER revealed a lot of congestion but also pleural effusion. (2) Pleural effusion Status: Acute Comment: Patient ultimately needed a thoracentesis which took off 1,000 cc of fluid. This was transudative in nature - likley from the CHF. (3) HTN (hypertension) Status: Chronic Comment: Stable throughout Hospital Course - Lab Results Lab Results: Micro Results 11/17/17 Unknown Pleural Fluid Gram Stain - Final 11/17/17 Unknown Pleural Fluid Body Fluid Culture - Preliminary NO GROWTH AFTER 3 DAYS 11/15/17 05:31 Blood Blood Culture - Final NO GROWTH AFTER 5 DAYS 11/15/17 05:31 Blood Gram Stain - Final TEST NOT PERFORMED 11/15/17 05:31 Blood Blood Culture - Final NO GROWTH AFTER 5 DAYS 11/15/17 05:31 Blood Gram Stain - Final TEST NOT PERFORMED Most Recent Lab Values WBC 5.0 K/uL (4.8-10.8) 11/21/17 07:48 RBC 4.37 Mil/uL (4.40-5.90) L 11/21/17 07:48 Hgb 12.8 g/dL (12.0-18.0) 11/21/17 07:48 Hct 39.1 % (35.0-51.0) 11/21/17 07:48 MCV 89.5 fL (80.0-94.0) 11/21/17 07:48 MCH 29.3 pg (27.0-31.0) 11/21/17 07:48 MCHC 32.7 g/dL (33.0-37.0) L 11/21/17 07:48 RDW 17.1 % (11.5-14.5) H 11/21/17 07:48 Plt Count 175 K/uL (130-400) 11/21/17 07:48 MPV 9.7 fL (7.2-11.7) 11/21/17 07:48 Neut % (Auto) 61.0 % (50.0-75.0) 11/21/17 07:48 Lymph % (Auto) 20.1 % (20.0-40.0) 11/21/17 07:48 Bland % (Auto) 15.4 % (0.0-10.0) H 11/21/17 07:48 Eos % (Auto) 2.5 % (0.0-4.0) 11/21/17 07:48 Baso % (Auto) 1.0 % (0.0-2.0) 11/21/17 07:48 Neut # (Auto) 3.1 K/uL (1.8-7.0) 11/21/17 07:48 Lymph # (Auto) 1.0 K/uL (1.0-4.3) 11/21/17 07:48 Bland # (Auto) 0.8 K/uL (0.0-0.8) 11/21/17 07:48 Eos # (Auto) 0.1 K/uL (0.0-0.7) 11/21/17 07:48 Baso # (Auto) 0.0 K/uL (0.0-0.2) 11/21/17 07:48 PT 17.1 SECONDS (9.7-12.2) H 11/17/17 07:44 INR 1.6 11/17/17 07:44 APTT 35 SECONDS (21-34) H 11/16/17 07:45 D-Dimer, Quantitative 2720 ng/mlDDU (0-243) H 11/14/17 23:10 Sodium 139 mmol/L (132-148) 11/21/17 07:48 Potassium 5.1 mmol/L (3.6-5.2) 11/21/17 07:48 Chloride 103 mmol/L (98-107) 11/21/17 07:48 Carbon Dioxide 29 mmol/L (22-30) 11/21/17 07:48 Anion Gap 12 (10-20) 11/21/17 07:48 BUN 28 mg/dL (9-20) H 11/21/17 07:48 Creatinine 1.3 mg/dL (0.8-1.5) 11/21/17 07:48 Est GFR ( Amer) > 60 11/21/17 07:48 Est GFR (Non-Af Amer) 53 11/21/17 07:48 Random Glucose 93 mg/dL (75-110) 11/21/17 07:48 Hemoglobin A1c 5.8 % (4.2-6.5) 11/16/17 07:45 Calcium 9.0 mg/dl (8.6-10.4) 11/21/17 07:48 Phosphorus 3.8 mg/dL (2.5-4.5) 11/21/17 07:48 Magnesium 2.2 mg/dL (1.6-2.3) 11/21/17 07:48 Total Bilirubin 0.7 mg/dL (0.2-1.3) 11/21/17 07:48 AST 49 U/L (17-59) 11/21/17 07:48 ALT 55 U/L (21-72) 11/21/17 07:48 Alkaline Phosphatase 99 U/L (38-126) 11/21/17 07:48 Total Creatine Kinase 48 U/L (55-170) L 11/15/17 17:24 CK-MB (Mass) 1.09 ng/mL (0.0-3.38) 11/15/17 17:24 Troponin I 0.0240 ng/mL (0.00-0.120) 11/15/17 17:24 NT-Pro-B Natriuret Pep 63748 pg/mL (0-900) H 11/15/17 11:44 Total Protein 6.3 g/dL (6.3-8.3) 11/21/17 07:48 Albumin 3.4 g/dL (3.5-5.0) L 11/21/17 07:48 Globulin 2.8 gm/dL (2.2-3.9) 11/21/17 07:48 Albumin/Globulin Ratio 1.2 (1.0-2.1) 11/21/17 07:48 Triglycerides 81 mg/dL (0-149) D 11/16/17 07:45 Cholesterol 113 mg/dL (0-199) 11/16/17 07:45 LDL Cholesterol Direct 41 mg/dL (0-129) 11/16/17 07:45 HDL Cholesterol 60 mg/dL (30-70) 11/16/17 07:45 Alpha Fetoprotein 3.9 ng/mL (0.0-7.5) 11/15/17 11:44 Carcinoembryonic Ag 3.6 ng/mL (0-3.0) H 11/15/17 11:44 CA 19-9 Antigen < 1.4 U/mL (0-37) 11/15/17 11:44 Free PSA 0.2 ng/mL 11/15/17 11:44 % Free PSA 40 % (calc) (>25) 11/15/17 11:44 Total PSA 0.5 ng/mL (< or = 4.0) 11/15/17 11:44 Free T4 1.16 ng/dL (0.78-2.19) 11/16/17 07:45 TSH 3rd Generation 1.15 mIU/L (0.46-4.68) 11/16/17 07:45 Urine Color Yellow (YELLOW) 11/14/17 23:53 Urine Clarity Clear (Clear) 11/14/17 23:53 Urine pH 5.0 (5.0-8.0) 11/14/17 23:53 Ur Specific [place] 1.006 (1.003-1.030) 11/14/17 23:53 Urine Protein Negative mg/dL (NEGATIVE) 11/14/17 23:53 Urine Glucose (UA) Normal mg/dL (Normal) 11/14/17 23:53 Urine Ketones Negative mg/dL (NEGATIVE) 11/14/17 23:53 Urine Blood Negative (NEGATIVE) 11/14/17 23:53 Urine Nitrate Negative (NEGATIVE) 11/14/17 23:53 Urine Bilirubin Negative (NEGATIVE) 11/14/17 23:53 Urine Urobilinogen Normal mg/dL (0.2-1.0) 11/14/17 23:53 Ur Leukocyte Esterase Neg [place]/uL (Negative) 11/14/17 23:53 Urine RBC (Auto) < 1 /hpf (0-3) 11/14/17 23:53 Fluid Source Peritoneal 11/17/17 16:24 Fluid Appearance Sl cloudy (CLEAR) 11/17/17 16:24 Fluid WBC 83.0 /mm3 (0.0-300.0) 10/03/18 16:24 Fluid RBC 507.0 /mm3 (0.0-0.0) H 11/17/17 16:24 Fluid Tot Cell Count TEST NOT PERFORMED 11/17/17 16:24 Fluid Neutrophils 53.0 % (0-0) H 11/17/17 16:24 Fluid Lymphocytes 36.0 % (0-0) H 11/17/17 16:24 Fld Monocyte/Macrophag 11 % (0-0) H 11/17/17 16:24 Fluid Albumin 1.2 g/dL 11/17/17 15:23 Fluid Comment 11/17/17 16:24 Peritoneal Tot Protein <3.0 g/dL 11/17/17 15:23 Peritoneal LDH 48 U/L (<63) 11/17/17 15:23 Peritoneal Triglycerid 11 mg/dL (<65) 11/17/17 15:23 Pleural Total Protein <3.0 g/dL 11/17/17 15:23 Pleural LDH 52 U/L 11/16/17 15:23 - Hospital Course Hospital Course: This is an 82 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 The patient has history of HTN, heart mumur, pacemaker and history of what appears to be a VATS after he fell and hit his chest. The patient lives at home with family members 2 D Echo reveals that there is regurgitation in the heart vavles in particular the tricupsid valve. The patient was placed on small doses of IV lasix while he was here help. The inital chest XRAY in the ER revealed a lot of congestion but also pleural effusion. The pleural effusions on CT were loculated in nature and very likley in the same areas where in fell many years ago requiring surgery. The patient had a thoracentesis and had 1,000 cc removed. Likley the patient's CHF was contributing to the pleural effusions. Patient will be discharged on low dose lasix I spoke with the patient's family member, his son from [employer] and updated him as well. Discharge Exam - Head Exam Head Exam: ATRAUMATIC, NORMAL INSPECTION - Eye Exam Additional comments: Patient is blind - Respiratory Exam Respiratory Exam: Decreased Breath Sounds, NORMAL BREATHING PATTERN - Cardiovascular Exam Cardiovascular Exam: REGULAR RHYTHM - GI/Abdominal Exam GI & Abdominal Exam: Normal Bowel Sounds, Unremarkable. absent: Distended, Firm, Guarding - Neurological Exam Neurological exam: Alert, Oriented x3 Additional comments: Patient is able to walk very well when he is given assistance because he is blind - Psychiatric Exam Psychiatric exam: Normal Affect, Normal Mood - Skin Skin Exam: Normal Color, Warm Discharge Plan - Discharge Medications Prescriptions: Furosemide [Lasix] 20 mg PO DAILY #14 tablet - Follow Up Plan Condition: STABLE Disposition: HOME/ ROUTINE Instructions: Heart Failure, Adult (DC), Chest Pain (DC), Pleural Effusion (DC), Heart Failure (DC), Heart Failure (GEN), Pacemaker (DC), Pacemaker (GEN), Pulmonary Edema (DC), Pulmonary Edema (GEN), Ascites (DC), Ascites (GEN), Hypertension (DC), Hypertension (GEN) Referrals: Iam Harley MD [Staff Provider] -
--- NOTE | 2017-11-21 12:57 | CP.PCM.PN ---
Subjective - Date & Time of Evaluation Date of Evaluation: 11/21/17 Time of Evaluation: 12:57 - Subjective Subjective: Pulmonary Follow up, Covering Dr Harley The patient was Seen/interviewed and examined by me at the bedside, Medical records reviewed and Management issues were discussed and formulated with the house staff. Events reviewed Patient is afebrile Adequate saturation 98% on RA Comfortable in no acute distress, resting comfortably upon entry. Patient reports he is feeling well overall. Pt denies chest pain, SOB, cough and wheezing. Objective - Vital Signs/Intake and Output Vital Signs (last 24 hours): Temp Pulse Resp BP Pulse Ox 97.4 F L 80 20 130/72 99 11/21/17 07:38 11/21/17 07:38 11/21/17 07:38 11/21/17 09:41 11/21/17 07:38 - Medications Medications: Current Medications Amlodipine Besylate (Norvasc) 10 mg PO DAILY [facility] Last Admin: 11/21/17 09:41 Dose: 10 mg Furosemide (Lasix) 20 mg IVP Q12 [facility] Last Admin: 11/21/17 09:41 Dose: 20 mg Heparin Sodium (Porcine) (Heparin) 5,000 units SC Q12 [facility] Last Admin: 11/21/17 09:41 Dose: 5,000 units - Labs Labs: 11/21/17 07:48 11/21/17 07:48 PT 17.1 SECONDS (9.7-12.2) H 11/17/17 07:44 INR 1.6 11/17/17 07:44 APTT 35 SECONDS (21-34) H 11/16/17 07:45 Assessment and Plan (1) Pleural effusion Status: Acute
== END 2017-11-21 15:44 | disposition home or self-care (01) | DRG 187 ==
LOC: C.ER 21:59 → C.9E 11-15 05:15 → C.5S 11-15 06:01
PROVIDERS: ADMIT Family Medicine; ATTEND Family Medicine
PROC: 0W9B3ZZ Drainage of Left Pleural Cavity, Percutaneous Approach (ICD-10-PCS; principal; 2017-11-15)
DX: J90 Pleural effusion, not elsewhere classified (principal); N17.9 Acute kidney failure, unspecified; I11.0 Hypertensive heart disease with heart failure; Z95.0 Presence of cardiac pacemaker; Z80.1 Family history of malignant neoplasm of trachea, bronchus and lung; Z88.0 Allergy status to penicillin; G89.29 Other chronic pain; Z83.3 Family history of diabetes mellitus; I27.20 Pulmonary hypertension, unspecified